=== PATIENT | female | born 1970 | race Caucasian/White ===

== ENCOUNTER → 2016-09-14 | Outpatient (CLI) | payer OTHER ==
[~2016-09-14] MED LIST: FIBER SUPPLEMENT PO; LINA1CAP PO; MEDR150I INJ; MOME100A INH; PARO1TAB27 PO; SENNTAB23 PO
[2016-09-14 18:32] LABS: LYME DISEASE AB IGG NEG (NEG); LYME DISEASE AB IGM NEG (NEG)
[2016-09-16 15:37] LABS: COLLECTION SAMPLE Venous; LEAD BLOOD <1 mcg/dL (<5)
== END | disposition home or self-care (01) ==
LOC: C.LAB 15:25
PROVIDERS: ATTEND Nurse Practitioner
DX: M79.643 Pain in unspecified hand (principal); M79.89 Other specified soft tissue disorders

== ENCOUNTER → 2016-10-18 | Outpatient (CLI) | payer OTHER ==
--- NOTE | 2016-10-18 17:43 | DIAGNOSTIC IMAGING REPORT ---
THORACIC SPINE 3 VIEWS HISTORY: M54.5 COMPARISON: None. FINDINGS: There is no fracture. No subluxation. Minimal disc space narrowing within the thoracic spine. Minimal levoscoliosis of the lower thoracic spine. Paraspinal soft tissues are unremarkable. IMPRESSION: No fracture or subluxation within the thoracic spine. Minimal degenerative disease and levoscoliosis. Electronically signed by: Devin Mcginnis M.D. 10/18/2016 5:42 PM Dictated Date/Time: 10/18/2016 5:40 PM
--- NOTE | 2016-10-18 17:44 | DIAGNOSTIC IMAGING REPORT ---
LUMBAR SPINE 5 VIEWS HISTORY: Low back pain. COMPARISON: None. FINDINGS: There is no fracture. No subluxation. The sacrum appears intact. Disc spaces are preserved. Tiny endplate osteophytes within the lumbar spine. IMPRESSION: No fracture or subluxation within the lumbar spine. Electronically signed by: Devin Mcginnis M.D. 10/18/2016 5:43 PM Dictated Date/Time: 10/18/2016 5:42 PM
== END | disposition home or self-care (01) ==
LOC: C.RAD 16:58
PROVIDERS: ATTEND Nurse Practitioner
DX: M54.5 Low back pain (principal)

== ENCOUNTER → 2016-11-24 | Outpatient (CLI) | payer OTHER ==
[~2016-11-24] MED LIST changes: +DULO60CA44 PO; +GABA-113 PO; +LISI-461 PO; +LORA-741 PO; +NAPR1TAB48 PO; +PRLSR20 PO
== END | disposition home or self-care (01) ==
LOC: C.PAPS 15:22
PROVIDERS: ATTEND Physician Assistant
DX: Z12.4 Encounter for screening for malignant neoplasm of cervix (principal)

== ENCOUNTER → 2016-12-13 | Outpatient (CLI) | payer OTHER ==
--- NOTE | 2016-12-13 16:45 | DIAGNOSTIC IMAGING REPORT ---
RIGHT KNEE 2 VIEWS CLINICAL HISTORY: Right knee pain. FINDINGS: AP and lateral views of the right knee are compared to study dated 08/14/2007. The skeletal structures are well mineralized. No fracture is seen. The joint spaces of the knee appear preserved. There is no joint effusion. Mild prepatellar soft tissue swelling is suggested. IMPRESSION: Mild prepatellar soft tissue swelling with no acute bony abnormality identified. Electronically signed by: Mckay Villeda M.D. 12/13/2016 4:42 PM Dictated Date/Time: 12/13/2016 4:41 PM
--- NOTE | 2016-12-13 16:47 | DIAGNOSTIC IMAGING REPORT ---
LEFT KNEE 2 VIEWS CLINICAL HISTORY: Left knee pain. FINDINGS: AP and lateral views of the left knee are compared to study dated 08/14/2007. The skeletal structures are well mineralized. No fracture is seen. The joint spaces of the left knee appear preserved. There is no joint effusion. Mild prepatellar soft tissue swelling is suggested. IMPRESSION: Mild prepatellar soft tissue swelling with no acute bony abnormality identified. Electronically signed by: Mckay Villeda M.D. 12/13/2016 4:44 PM Dictated Date/Time: 12/13/2016 4:44 PM
== END | disposition home or self-care (01) ==
LOC: C.RAD 16:21
PROVIDERS: ATTEND Nurse Practitioner
DX: M25.569 Pain in unspecified knee (principal)

== ENCOUNTER → 2016-12-19 | Outpatient (CLI) | payer OTHER ==
[2016-12-19 18:50] LABS: ALT/SGPT 19 U/L (12-78); AST/SGOT 9 U/L (15-37); BLOOD UREA NITROGEN 23 mg/dl (7-18); BUN/CREATININE RATIO 27.2 (10-20); CALCIUM 8.8 mg/dl (8.5-10.1); CARBON DIOXIDE 24 mmol/L (21-32); CHLORIDE 112 mmol/L (98-107); CREATININE 0.84 mg/dl (0.60-1.20); GLUCOSE 89 mg/dl (70-99); POTASSIUM 4.1 mmol/L (3.5-5.1); SODIUM 143 mmol/L (136-145)
[2016-12-19 18:52] LABS: ALB/GLOB RATIO 1.4 (0.9-2); ALKALINE PHOSPHATASE 38 U/L (45-117); CHOLESTEROL 273 mg/dl (0-200); HDL CHOLESTEROL 55 mg/dl; LDL CHOLESTEROL CALCULATED 189 mg/dl; TRIGLYCERIDES 147 mg/dl (0-150); VERY LOW DENSITY LIPOPROT CALC 29 mg/dl
== END | disposition home or self-care (01) ==
LOC: C.LABBFT 15:36
PROVIDERS: ATTEND Nurse Practitioner
DX: E78.5 Hyperlipidemia, unspecified (principal)

== ENCOUNTER → 2017-01-20 | Outpatient (CLI) | payer OTHER ==
--- NOTE | 2017-01-24 14:58 | MAMMOGRAPHY REPORT ---
BILATERAL FIRST EVER DIGITAL SCREENING MAMMOGRAM TOMOSYNTHESIS WITH CAD: 01/20/2017 CLINICAL HISTORY: Routine screening. Baseline exam. TECHNIQUE: Breast tomosynthesis in addition to standard 2D mammography was performed. Current study was also evaluated with a Computer Aided Detection (CAD) system. COMPARISON: No prior exams were available for comparison. BREAST COMPOSITION: There are scattered areas of fibroglandular density in both breasts. FINDINGS: No suspicious masses, calcifications, or areas of architectural distortion are noted in e ither breast. Bilateral scattered benign-appearing calcifications are noted. IMPRESSION: ACR BI-RADS CATEGORY 2: BENIGN There is no mammographic evidence of malignancy. A 1 year screening mammogram is recommended. The p atient will receive written notification of the results. Approximately 10% of breast cancers are not detected with mammography. A negative mammographic repor t should not delay biopsy if a clinically suggestive mass is present. Deidre Titus M.D. ah/:01/20/2017 16:29:05 Salvage Supervisor: Hector MART(Etienne)(Johny), [facility] letter sent: Normal 1/2 BI-RADS Code: ACR BI-RADS Category 2: Benign
== END | disposition home or self-care (01) ==
LOC: C.MAMM 15:51
PROVIDERS: ATTEND Internal Medicine
DX: Z12.31 Encounter for screening mammogram for malignant neoplasm of breast (principal)

== ENCOUNTER → 2017-05-15 | Outpatient (CLI) | payer OTHER ==
[~2017-05-15] MED LIST changes: -DULO60CA44 PO; -GABA-113 PO; -LISI-461 PO; -LORA-741 PO; -NAPR1TAB48 PO; -PRLSR20 PO
== END | disposition home or self-care (01) ==
LOC: C.LABBFT 14:37
PROVIDERS: ATTEND Nurse Practitioner
DX: R20.2 Paresthesia of skin (principal); R52 Pain, unspecified

== ENCOUNTER → 2017-06-21 | Outpatient (CLI) | payer OTHER ==
--- NOTE | 2017-06-21 17:32 | DIAGNOSTIC IMAGING REPORT ---
LUMBAR SPINE W/O CONTRAST CLINICAL HISTORY: 47 years-old Female with LOW BACK PAIN, NUMBNESS IN FEET. Acute on chronic low back pain with bilateral leg pain. COMPARISON: Lumbar spine radiographs 10/18/2016, CT 11/20/2015, bone scan 09/17/2007. TECHNIQUE: Multiplanar, multi sequence MRI of the lumbar spine was performed without intravenous contrast. FINDINGS: Vertebral body heights are well-maintained without compression deformity. Alignment is satisfactory. There is no focal bone marrow or soft tissue edema. No fracture or marrow replacing process. Signal within the cord is normal. Conus medullaris terminates at L1. Probable perineural root sleeve cyst is seen on the left at S2-S3, 9 mm as seen on image 10 of series 4. No acute intra-abdominal, intrapelvic or paraspinal abnormality identified. The large [id number] migratory worker images demonstrate an anteflexed uterus without gross abdominal or pelvic abnormality. T12-L1: No central canal or neural foraminal stenosis. L1-L2: Mild intervertebral disc space narrowing with small annular fissure and broad-based left paracentral/foraminal disc protrusion flattening the ventral thecal sac causing mild left lateral recess narrowing abutting the adjacent L3 nerve root. No significant central canal or foraminal narrowing. L2-L3: Small circumferential annular disc bulge flattens the ventral thecal sac. Mild ligament flavum thickening is also present. There is mild inferior left foraminal narrowing. Central canal and right foramen are patent. L3-L4: No central canal or neural foraminal stenosis. Mild ligamentum flavum redundancy and mild facet arthrosis. L4-L5: Broad-based posterior disc bulge with small annular fissure seen on image 7 of series 4 and associated small disc extrusion extending 3 mm inferiorly within the left paracentral/foraminal distribution flattening the ventral thecal sac causing mild left lateral recess and mild left foraminal narrowing. There is also mild right foraminal stenosis at this level. No significant central canal narrowing. Mild facet arthrosis. L5-S1: Broad-based posterior disc bulge with mild facet arthrosis and ligamentum flavum redundancy. No central canal narrowing. There is mild bilateral foraminal stenosis. IMPRESSION: 1. Broad-based posterior disc bulge with small annular fissure and small left paracentral/left foraminal disc extrusion at L4-L5 causes mild left lateral recess and mild bilateral foraminal narrowing. 2. At L1-L2, discogenic degenerative changes and small annular fissure are present with mild left lateral recess stenosis as above. 3. Broad-based posterior disc bulge and mild facet arthrosis at L5-S1 causes mild bilateral foraminal narrowing. The above report was generated using voice recognition software. It may contain grammatical, syntax or spelling errors. Electronically signed by: Speedy Tena M.D. 06/21/2017 5:30 PM Dictated Date/Time: 06/21/2017 5:20 PM
== END | disposition home or self-care (01) ==
LOC: C.MRI 15:33
PROVIDERS: ATTEND Nurse Practitioner
DX: M51.06 Intervertebral disc disorders with myelopathy, lumbar region (principal); R20.2 Paresthesia of skin; M48.061 Spinal stenosis, lumbar region without neurogenic claudication

== ENCOUNTER → 2017-11-22 | Outpatient (CLI) | payer OTHER ==
[~2017-11-22] MED LIST changes: +CLX20 PO; +DULO60CA44 PO; +GABA-113 PO; +LISI-461 PO; +LORA-741 PO; +NAPR1TAB48 PO; -PARO1TAB27 PO; +PRAZ1CAP PO; +PRLSR20 PO; +ZOLP5TAB PO
[2017-11-22 17:13] LABS: BASO % 0.2 %; BASO ABS # 0.01 K/uL (0-0.2); EOS % 1.2 %; EOS ABS # 0.07 K/uL (0-0.5); HEMATOCRIT 39.2 % (37-47); HEMOGLOBIN 13.2 g/dL (12.0-16.0); LYMPH % 28.3 %; LYMPH ABS # 1.72 K/uL (1.2-3.4); MEAN CELL VOLUME 86.3 fL (80-100); MEAN CORPUSCULAR HEMOGLOBIN 29.1 pg (25-34); MEAN CORPUSCULAR HGB CONC 33.7 g/dl (32-36); MEAN PLATELET VOLUME 10.5 fL (7.4-10.4); MONO % 6.9 %; MONO ABS # 0.42 K/uL (0.11-0.59); NEUT % 63.4 %; NEUT ABS # 3.86 K/uL (1.4-6.5); PLATELET COUNT 236 K/uL (130-400); RED CELL DISTRIBUTION WIDTH CV 14.6 % (11.5-14.5); RED CELL DISTRIBUTION WIDTH SD 46.1 fL (36.4-46.3); WHITE BLOOD COUNT 6.08 K/uL (4.8-10.8)
[2017-11-22 17:44] LABS: ALBUMIN 4.5 gm/dl (3.4-5.0); ALT/SGPT 18 U/L (12-78); AST/SGOT 17 U/L (15-37); BLOOD UREA NITROGEN 22 mg/dl (7-18); CALCIUM 9.6 mg/dl (8.5-10.1); CARBON DIOXIDE 22 mmol/L (21-32); CREATININE 0.91 mg/dl (0.60-1.20); GLUCOSE 92 mg/dl (70-99); SODIUM 140 mmol/L (136-145)
[2017-11-22 17:47] LABS: ALKALINE PHOSPHATASE 42 U/L (45-117); TOTAL PROTEIN 7.6 gm/dl (6.4-8.2)
== END | disposition home or self-care (01) ==
LOC: C.LABBFT 12:02
PROVIDERS: ATTEND Nurse Practitioner
DX: I10 Essential (primary) hypertension (principal); R39.9 Unspecified symptoms and signs involving the genitourinary system

== ENCOUNTER → 2017-12-16 | Outpatient (CLI) | payer OTHER ==
[~2017-12-16] MED LIST changes: +CYCL10TA6 PO; +DPPRI400 IN; -FIBER SUPPLEMENT PO; -MEDR150I INJ; +METH4PAK PO
--- NOTE | 2017-12-16 16:05 | DIAGNOSTIC IMAGING REPORT ---
KUB CLINICAL HISTORY: Bilateral flank pain. FINDINGS: 2 AP supine abdominal radiographs are compared to study dated 03/01/2006 and correlated with abdominal CT dated 11/20/2015. There is a nonobstructed abdominal bowel gas pattern noting moderate colonic fecal retention. There is a punctate nonobstructing left renal calculus. No calcifications are seen projecting over the right kidney or along the course of the ureters. No evidence of intraperitoneal free air is seen on these supine images. The bony structures appear intact. IMPRESSION: 1. There is a punctate nonobstructing left renal calculus. 2. Moderate constipation. Electronically signed by: Mckay Villeda M.D. 12/16/2017 4:04 PM Dictated Date/Time: 12/16/2017 4:02 PM
== END | disposition home or self-care (01) ==
LOC: C.RAD 15:07
PROVIDERS: ATTEND Internal Medicine
DX: R10.9 Unspecified abdominal pain (principal)

== ENCOUNTER → 2018-01-03 | Outpatient (CLI) | payer OTHER ==
[~2018-01-03] MED LIST changes: -CYCL10TA6 PO; +GADAVIST IV PRN; -METH4PAK PO
--- NOTE | 2018-01-03 16:00 | DIAGNOSTIC IMAGING REPORT ---
MRI OF THE BRAIN WITHOUT AND WITH IV CONTRAST CLINICAL HISTORY: R29.898 Weakness of both lower [id number] VISUAL DISTURBANCES. MEMORY ISSUES. HISTORY OF FIBROMYALGIA. COMPARISON STUDY: No previous studies for comparison. TECHNIQUE: MRI of the brain was performed from the vertex to the skull base utilizing various T1 and T2 weighted sequences. Following the IV administration of 6 mL of Gadavist contrast, additional enhanced images were obtained. FINDINGS: Sagittal T1, axial diffusion, proton density and T2 weighted axial, coronal FLAIR, and pre and post axial T1-weighted images were acquired. These were supplemented with post gadolinium coronal T1 weighted images. No intra or extra-axial mass lesions are visualized. Axial diffusion-weighted images reveal no evidence of acute or subacute infarction. There is no evidence of ventricular dilatation. Proton density T2-weighted and FLAIR images reveal scattered foci of increased T2 signal within the white matter, likely on a small vessel basis. There are no abnormal flow voids. There is no pathologic intraparenchymal enhancement. There is a nonspecific 11 mm T2 bright diploic lesion within the right anterior parietal bone. This demonstrates postcontrast enhancement. In the absence of a primary malignancy, this lesion is of doubtful acute clinical significance. A follow-up MRI study in 6 months might be considered to reevaluate the white matter lesions, as well as to reevaluate the right diploic space lesion. IMPRESSION: 1. Multiple scattered nonspecific foci of increased T2 signal within the white matter, the largest of which measures 5 mm. While demyelinating disease cannot be excluded, the lesions do not have the typical orientation of multiple sclerosis plaques, and may simply be secondary to small vessel perivascular change. 2. No evidence of acute or subacute infarction 3. Nonspecific 11 mm T2 bright diploic lesion within the right anterior parietal bone Electronically signed by: Basil Springer M.D. 01/03/2018 3:58 PM Dictated Date/Time: 01/03/2018 3:51 PM
== END | disposition home or self-care (01) ==
LOC: C.MRI 14:53
PROVIDERS: ATTEND Nurse Practitioner
DX: G93.9 Disorder of brain, unspecified (principal); M84.88 Other disorders of continuity of bone, other site; R29.898 Other symptoms and signs involving the musculoskeletal system

== ENCOUNTER 2022-06-01 03:21 | Inpatient (IN) ==
[2022-06-01] MEDS ORDERED: KETOROLAC TROMETHAMINE 15 MG/ML VIAL IV STA (03:31)
[2022-06-01] MEDS ORDERED: ONDANSETRON INJ 2 MG/ML 2 ML VIAL IV STA ×2 (03:31→05:49)
[2022-06-01] MEDS ORDERED: SODIUM CHLORIDE 0.9% 1000ML 1,000 ML IV STA (03:31)
[2022-06-01 04:07] LABS: Hematocrit (blood only) 36.4 % (34.1-44.9); Hemoglobin 12.7 g/dl (12.0-16.0); Mean Corpuscular Hemoglobin 29.1 pg (25.0-34.0); Mean Corpuscular Hgb Conc 34.9 g/dL (32.0-36.0); Mean Corpuscular Volume 83.5 fL (80.0-100.0); Mean Platelet Volume 10.3 fL (9.4-12.3); Platelet Count 162 K/uL (130-400); RDW Coefficient of Variation 13.1 % (11.5-14.5); RDW Standard Deviation 39.7 fL (36.4-46.3); Red Blood Count 4.36 M/uL (3.93-5.22); White Blood Count 10.99 K/ul (4.8-10.8)
[2022-06-01 04:11] LABS: Appearance Urine Clear (Clear); Bacteria Urine Automated 4+ (Negative); Bilirubin Urine Negative (Negative); Blood Urine 2+ (Negative); Cast Urine Automated 0 /lpf (0-5); Color Urine Yellow; Glucose Urine UA Negative (Negative); Ketones Urine Negative (Negative); Leukocyte Esterase Urine Trace (Negative); Nitrite Urine Negative (Negative); Protein Urine Negative (Negative); RBC Urine Automated 0-4 /hpf (0-4); Specific Gravity Urine 1.008 (1.000-1.030); Urobilinogen Urine Negative (Negative)
[2022-06-01] MEDS ORDERED: ACETAMINOPHEN 1,000 MG/100 ML VIAL IV STA ×3 (04:22→13:48)
[2022-06-01] MEDS ORDERED: cefTRIAXone SODIUM 2,000 MG/70 ML BAG IV STA (04:26)
[2022-06-01 04:38] LABS: Alanine Aminotransferase 41 U/L (7-52); Albumin Globulin Ratio 2.1 (0.9-2); Alkaline Phosphatase 53 U/L (34-104); Anion Gap 11 (3-11); Aspartate Aminotransferase 27 U/L (13-39); BUN Creatinine Ratio 21.8 (10-20); Bilirubin,Total 0.7 mg/dl (0.2-1.0); Blood Urea Nitrogen 19 mg/dl (6-23); Calcium 8.9 mg/dl (8.5-10.1); Carbon Dioxide 18 mmol/L (21-32); Chloride 106 mmol/L (98-107); Est GFR (African American) 87.5 ml/min; Est GFR (Non-African American) 75.5 ml/min; Globulin 1.9 gm/dl (2.5-4.0); Glucose 127 mg/dl (70-99(Fasting)); Lipase 27 U/L (11-82); Potassium 3.4 mmol/L (3.5-5.1); Sodium 135 mmol/L (136-145); Total Protein 5.9 gm/dl (6.0-8.3)
[2022-06-01 04:48] LABS: Basophils # (auto) 0.02 K/uL (0-0.2); Basophils % (auto) 0.2 %; Eosinophils # (auto) 0.01 K/uL (0-0.50); Eosinophils % (auto) 0.1 %; Immature Granulocytes # (auto) 0.04 K/uL (0.00-0.02); Immature Granulocytes % (auto) 0.4 %; Lymphocytes # (auto) 0.65 K/uL (1.2-3.4); Lymphocytes % (auto) 5.9 %; Monocytes # (auto) 0.18 K/uL (0.24-0.82); Monocytes % (auto) 1.6 %; Neutrophils # (auto) 10.09 K/uL (1.4-6.5); Neutrophils % (auto) 91.8 %; Toxic Vacuolation 1+
[2022-06-01] MEDS ORDERED: MoRPHine SULFATE 2 MG/ML CARP IV STA (04:50)
--- NOTE | 2022-06-01 05:13 | Urology Consultation ---
Date of Consultation June 01, 2022 Assessment & Plan (1) Nephrolithiasis: The patient is being admitted on the hospitalist service. We recommend proceeding as follows: Provide analgesics Provide antiemetics Provide hydration for IV fluids Patient has been given antibiotics in the form of Rocephin. This should continue until results of urine culture are back, at which time antibiotics can be further tailored Recommend initiating Flomax for expulsive therapy The patient currently has normal blood pressure, is not tachycardic, and is afebrile. Renal function is normal. White blood cell count only has a slight elevation at 10.9 therefore an emergent urologic procedure is not required at this time. Recommend keeping the patient n.p.o., she will be reassessed later this morning and consideration can be given at that time to performing cystoscopic intervention if felt indicated History of Present Illness Reason for Consultation: Nephrolithiasis History of Present Illness This is a 52-year-old female who presented to the emergency department secondary to left-sided flank pain. The patient says that she was in her usual state of health yesterday, feeling fine without any pain, until approximate 9:00 PM she developed left flank pain. She notes that the pain radiates somewhat to the front of her abdomen. She denies any fevers but has had occasional chills. She also reports some intermittent dysuria. She denies urinary frequency or hematuria however. Patient does report a history of nephrolithiasis in the past. She notes that she has had to have cystoscopy with stent placement and lithotripsy for previous kidney stones in the past. In the emergency department the patient had labs and imaging which I independently reviewed. CBC revealed white blood cell count was 10.9. Hemoglobin, hematocrit, platelet count were normal. Chemistry profile showed sodium and potassium are 135 and 3.4 respectively. BUN and creatinine were both noted to be normal. Urinalysis was negative for nitrites but did show trace leukocyte esterase. There were 5-10 white blood cells per high-power field and 4+ bacteria noted on the study. A test was negative. CT scan of the abdomen pelvis showed the patient had a 4 x 3 mm left-sided kidney stone resulting in hydronephrosis. At the time of my interview the patient was resting comfortably in bed and she was in no distress. Allergies Allergy/AdvReac Type Severity Reaction Status Date / Time meloxicam Allergy Intermediate GI SYMPTOMS Verified 01/07/22 14:07 Home Medications Medication Instructions Recorded Confirmed Type prazosin 1 mg capsule 1 mg PO DAILY 03/28/19 06/01/22 History lorazepam 0.5 mg tablet 0.5 mg PO Q6 PRN Anxiety #30 tabs 10/19/20 06/01/22 Rx Ventolin HFA 90 mcg/actuation See Rx Instructions .Route 04/21/21 06/01/22 Rx aerosol inhaler (albuterol sulfate) .COMPLEX #18 Inhalers gabapentin 600 mg tablet 600 mg PO TID #270 tabs 04/21/21 06/01/22 Rx budesonide-formoterol HFA 80 2 puff inhalation BID 06/26/21 06/01/22 History mcg-4.5 mcg/actuation aerosol inhaler (Symbicort) sumatriptan succinate 100 mg tablet 100 mg PO Q2H PRN migraine 09/29/21 01/07/22 Rx headache #27 tabs duloxetine 60 mg capsule,delayed 60 mg PO DAILY #90 caps 11/09/21 06/01/22 Rx release (Cymbalta) sertraline 100 mg tablet 100 mg PO DAILY 01/07/22 06/01/22 History trazodone 50 mg tablet 50 mg PO HS 01/07/22 06/01/22 History divalproex 250 mg tablet,delayed 250 mg PO HS 90 days #90 tabs 01/17/22 06/01/22 Rx release galcanezumab-gnlm 120 mg/mL See Rx Instructions .Route 04/06/22 06/01/22 Rx subcutaneous pen injector .COMPLEX #1 mL (Emgality Pen) atorvastatin 20 mg tablet 20 mg PO DAILY #90 tabs 05/17/22 06/01/22 Rx omeprazole 20 mg capsule,delayed 20 mg PO DAILY #90 caps 05/17/22 06/01/22 Rx release Patient History Medical History Abnormal brain MRI Kidney stones Surgical History History of lithotripsy renal History of tubal ligation Hx of abdominal surgery Family History Mother COPD (chronic obstructive pulmonary disease) Diabetes Father Aneurysm of abdominal aorta Unknown Cardiac disorder Brother Kidney stones Other Family history non-contributory Heart disease Hypertension Denies family history of Ovarian cancer Prostate cancer Breast cancer Lung cancer Colorectal cancer Social History Smoking Status: Unknown if ever smoked Second Hand Exposure: Yes; Hx Alcohol Use: No Hx Substance Use: No Preferred Language: Cymraes marital status: Single Current Living Situation: Family Current Living Situation Comment: Lives w/ 30 year old son current occupational status: disabled Feels Safe at Home: Yes Childhood Exposure to Second-Hand Smoke: Yes caffeine: Yes Dental Care, Regularly: Yes Physical Activity Frequency: Does not Exercise Physical Activity Frequency Comment: Unable to exercise due to pain Seatbelt Use: always Sunscreen Use: No (Is sensitive to sun, avoids being in the sunlight ) Assistive Devices: Glasses Review of Systems Constitutional: + chills; no fever Eyes: no eye pain Ear, Nose, Mouth, Throat: no ear pain Respiratory: no cough and no dyspnea Cardiovascular: no chest pain Gastrointestinal: + abdominal pain (Radiating from left flank) Genitourinary: + dysuria; no hematuria Musculoskeletal: + back pain (Left flank) Integumentary: no rash Neurologic: no generalized weakness Physical Exam Constitutional: WD/WN, vitals as above Eyes: no conjunctival abnormality ENMT: Ears: no hearing impairment and no external ear abnormality Mouth: no oropharynx abnormality Neck: trachea midline Respiratory: normal respiratory effort; no respiratory distress and no labored breathing Cardiovascular: Rate/Rhythm: regular rate and regular rhythm Gastrointestinal (Abdomen): Abdomen is soft, nonrigid, nondistended. The patient did have some minor discomfort in the left hypogastric area with palpation Musculoskeletal: No calf tenderness Skin: no rashes Neurologic: moves all extremities Psychiatric: A+Ox3, euthymic affect Genitourinary: + CVA tenderness (Left-sided, noted with percussion) Results & Data ([facility]) Vital Signs (Past 12 Hours) Vital Signs Temp Pulse Resp BP Pulse Ox O2 Del Method 06/01/22 03:50 70 22 98 Room Air 06/01/22 03:28 37.2 C 79 22 106/70 98 PG Care Time/CCT Total # of Minutes Spent Total Time Spent with Patient: Total time spent is greater than 50% in coordination of care (as documented) at patient's floor/unit and/or counseling patient: Coding Level of Care Code 73162 Inpt Consult Level 5 Diagnoses Nephrolithiasis N20.0
--- NOTE | 2022-06-01 05:36 | History & Physical Report ---
Date of Service June 01, 2022 Assessment & Plan (1) Nephrolithiasis: Plan: 52yo female with history of prior renal stones presenting with acute onset left flank pain with nausea, chills and dysuria. Found to have left renal stone on CT, UA suggestive of infection. Patient is afebrile, HD stable. In pain but otherwise non-toxic in appearance. -Admit to medical -Keep NPO -Strain urine -Zofran PRN nausea -Morphine PRN pain -Colace PRN -Flomax 0.4mg po daily -LR at 125mL/hr x 2 liters -Urology consultation appreciated -Treatment with Ceftriaxone 1gm IV daily -Follow cultures (2) UTI (urinary tract infection): Plan: Patient afebrile, HD stable, non-toxic in appearance -Follow cultures -Ceftriaxone 1gm IV daily -Tylenol PRN pain or fever (3) Asthma: Plan: Chronic. Patient is recovering from bronchitis - was on recent course of Prednisone and antibiotic. States she was using her inhalers more during her acute illness but presently denies cough or SOB. -Continue Albuterol PRN -Continue Symbicort (4) Depression: Plan: With anxiety -Continue Ativan -Continue Sertraline -Continue Prazosin (5) Fibromyalgia: Plan: Chronic -Continue Depakote -Continue Cymbalta -Continue Neurontin (6) Gastro-esophageal reflux disease without esophagitis: Plan: Chronic -Pepcid 40mg po daily (7) Hyperlipidemia: Plan: Chronic -Continue Atorvastatin 20mg po daily History of Present Illness Chief Complaint: left flank pain Primary Care Provider: Jacey Rivers PA-C Camilla Narayanan is a 52yo female with history of asthma, HTN, GERD, FM and asthma presenting with acute onset left flank pain. Patient is recovering from bronchitis - recently completed a 5 day course of antibiotic and steroid. She was overall feeling well until this evening at 20:45 when she developed acute left flank pain as well as nausea. Pain is similar to prior episodes of renal stones. Patient has had renal stones in the past - she has been able to pass some but has also had lithotripsy and stent placement. No additional complaints at this time. In the ER she is afebrile, HD stable, in mild distress secondary to pain Workup with visible stone in left ureter - formal CT read pending UA is suggestive of infection ER Course: Tylenol, Ceftriaxione, Toradol, Morphine, Zofran, NSS Allergies Allergy/AdvReac Type Severity Reaction Status Date / Time meloxicam Allergy Intermediate GI SYMPTOMS Verified 01/07/22 14:07 Home Medications Medication Instructions Recorded Confirmed Type prazosin 1 mg capsule 1 mg PO DAILY 03/28/19 06/01/22 History lorazepam 0.5 mg tablet 0.5 mg PO Q6 PRN Anxiety #30 tabs 10/19/20 06/01/22 Rx Ventolin HFA 90 mcg/actuation See Rx Instructions .Route 04/21/21 06/01/22 Rx aerosol inhaler (albuterol sulfate) .COMPLEX #18 Inhalers gabapentin 600 mg tablet 600 mg PO TID #270 tabs 04/21/21 06/01/22 Rx budesonide-formoterol HFA 80 2 puff inhalation BID 06/26/21 06/01/22 History mcg-4.5 mcg/actuation aerosol inhaler (Symbicort) sumatriptan succinate 100 mg tablet 100 mg PO Q2H PRN migraine 09/29/21 01/07/22 Rx headache #27 tabs duloxetine 60 mg capsule,delayed 60 mg PO DAILY #90 caps 11/09/21 06/01/22 Rx release (Cymbalta) sertraline 100 mg tablet 100 mg PO DAILY 01/07/22 06/01/22 History trazodone 50 mg tablet 50 mg PO HS 01/07/22 06/01/22 History divalproex 250 mg tablet,delayed 250 mg PO HS 90 days #90 tabs 01/17/22 06/01/22 Rx release galcanezumab-gnlm 120 mg/mL See Rx Instructions .Route 04/06/22 06/01/22 Rx subcutaneous pen injector .COMPLEX #1 mL (Emgality Pen) atorvastatin 20 mg tablet 20 mg PO DAILY #90 tabs 05/17/22 06/01/22 Rx omeprazole 20 mg capsule,delayed 20 mg PO DAILY #90 caps 05/17/22 06/01/22 Rx release Past Med/Surg History Medical History Abnormal brain MRI Asthma Depression Essential hypertension Fibromyalgia Gastro-esophageal reflux disease without esophagitis Hyperlipidemia Kidney stones Migraine Surgical History History of lithotripsy renal History of tubal ligation Hx of abdominal surgery Family History Mother COPD (chronic obstructive pulmonary disease) Diabetes Father Aneurysm of abdominal aorta Unknown Cardiac disorder Brother Kidney stones Other Family history non-contributory Heart disease Hypertension Denies family history of Ovarian cancer Prostate cancer Breast cancer Lung cancer Colorectal cancer Social History Smoking Status: Unknown if ever smoked Second Hand Exposure: Yes; Hx Alcohol Use: No Hx Substance Use: No Preferred Language: Romansh marital status: Single Current Living Situation: Family Current Living Situation Comment: Lives w/ 30 year old son current occupational status: disabled Feels Safe at Home: Yes Childhood Exposure to Second-Hand Smoke: Yes caffeine: Yes Dental Care, Regularly: Yes Physical Activity Frequency: Does not Exercise Physical Activity Frequency Comment: Unable to exercise due to pain Seatbelt Use: always Sunscreen Use: No (Is sensitive to sun, avoids being in the sunlight ) Assistive Devices: Glasses Review of Systems Review of Systems: All systems reviewed & are unremarkable except as noted in HPI & below Physical Exam Physical Exam: General: patient resting comfortably, NAD, non-toxic in appearance, AA&O x 4 Skin: warm, dry, intact, no rashes or lesions HEENT: NC/AT, PERRL, EOMI, anicteric sclera, conjunctiva without injection, external ear normal to inspection and nontender, nares patent, moist mucus membranes, dentition intact, no oropharyngeal lesions, neck supple, trachea midline, no LAD, no thyromegaly, no JVD Heart: +S1/S2, regular, no m/r/g Lungs: equal air entry bilaterally, no rales/rhonchi/wheezes Abd: +BS, soft, ND, tenderness in the left flank and LLQ with voluntary guarding, no masses/organomegaly/ascites Ext: warm, 2+ pulses in UE/LE bilaterally, no clubbing/cyanosis or edema Neuro: nonfocal, patient AA&O x 4, speech intact, no facial droop, moving all extremities on command with equal strength 5/5 Results & Data Results & Data ([place]) Vital Signs (Past 12 Hours) Vital Signs Temp Pulse Pulse Resp BP BP Pulse Ox 06/01/22 05:00 89 22 124/57 L 98 06/01/22 03:50 70 22 98 06/01/22 03:28 37.2 C 79 22 106/70 98 O2 Del Method 06/01/22 05:00 Room Air 06/01/22 03:50 Room Air 06/01/22 03:28 Laboratory Results Laboratory Results WBC 10.99 K/ul (4.8-10.8) H 06/01/22 03:40 RBC 4.36 M/uL (3.93-5.22) 06/01/22 03:40 Hgb 12.7 g/dl (12.0-16.0) 06/01/22 03:40 Hct 36.4 % (34.1-44.9) 06/01/22 03:40 MCV 83.5 fL (80.0-100.0) 06/01/22 03:40 MCH 29.1 pg (25.0-34.0) 06/01/22 03:40 MCHC 34.9 g/dL (32.0-36.0) 06/01/22 03:40 RDW Std Deviation 39.7 fL (36.4-46.3) 06/01/22 03:40 RDW Coeff of Stephan 13.1 % (11.5-14.5) 06/01/22 03:40 Plt Count 162 K/uL (130-400) 06/01/22 03:40 MPV 10.3 fL (9.4-12.3) 06/01/22 03:40 Immature Gran % (Auto) 0.4 % 06/01/22 03:40 Neut % (Auto) 91.8 % 06/01/22 03:40 Lymph % (Auto) 5.9 % 06/01/22 03:40 [place] % (Auto) 1.6 % 06/01/22 03:40 Eos % (Auto) 0.1 % 06/01/22 03:40 Baso % (Auto) 0.2 % 06/01/22 03:40 Neut # (Auto) 10.09 K/uL (1.4-6.5) H 06/01/22 03:40 Lymph # (Auto) 0.65 K/uL (1.2-3.4) L 06/01/22 03:40 [place] # (Auto) 0.18 K/uL (0.24-0.82) L 06/01/22 03:40 Eos # (Auto) 0.01 K/uL (0-0.50) 06/01/22 03:40 Baso # (Auto) 0.02 K/uL (0-0.2) 06/01/22 03:40 Immature Gran # (Auto) 0.04 K/uL (0.00-0.02) H 06/01/22 03:40 Toxic Vacuolation 1+ 06/01/22 03:40 Sodium 135 mmol/L (136-145) L 06/01/22 03:40 Potassium 3.4 mmol/L (3.5-5.1) L 06/01/22 03:40 Chloride 106 mmol/L (98-107) 06/01/22 03:40 Carbon Dioxide 18 mmol/L (21-32) L 06/01/22 03:40 Anion Gap 11 (3-11) 06/01/22 03:40 BUN 19 mg/dl (6-23) 06/01/22 03:40 Creatinine 0.87 mg/dl (0.6-1.2) 06/01/22 03:40 Est Cr Clr Drug Dosing Not Reportable 06/01/22 03:40 Est GFR ( Amer) 87.5 ml/min 06/01/22 03:40 Est GFR (Non-Af Amer) 75.5 ml/min 06/01/22 03:40 BUN/Creatinine Ratio 21.8 (10-20) H 06/01/22 03:40 Glucose 127 mg/dl (70-99(Fasting)) H 06/01/22 03:40 Calcium 8.9 mg/dl (8.5-10.1) 06/01/22 03:40 Total Bilirubin 0.7 mg/dl (0.2-1.0) 06/01/22 03:40 AST 27 U/L (13-39) 06/01/22 03:40 ALT 41 U/L (7-52) 06/01/22 03:40 Alkaline Phosphatase 53 U/L (34-104) 06/01/22 03:40 Total Protein 5.9 gm/dl (6.0-8.3) L 06/01/22 03:40 Albumin 4.0 gm/dl (3.4-5.0) 06/01/22 03:40 Globulin 1.9 gm/dl (2.5-4.0) L 06/01/22 03:40 Albumin/Globulin Ratio 2.1 (0.9-2) H 06/01/22 03:40 Lipase 27 U/L (11-82) 06/01/22 03:40 Urine Color Yellow 06/01/22 03:40 Urine Appearance Clear (Clear) 06/01/22 03:40 Urine pH 7.0 (4.5-7.5) 06/01/22 03:40 Ur Specific [place] 1.008 (1.000-1.030) 06/01/22 03:40 Urine Protein Negative (Negative) 06/01/22 03:40 Urine Glucose (UA) Negative (Negative) 06/01/22 03:40 Urine Ketones Negative (Negative) 06/01/22 03:40 Urine Blood 2+ (Negative) H 06/01/22 03:40 Urine Nitrite Negative (Negative) 06/01/22 03:40 Urine Bilirubin Negative (Negative) 06/01/22 03:40 Urine Urobilinogen Negative (Negative) 06/01/22 03:40 Ur Leukocyte Esterase Trace (Negative) H 06/01/22 03:40 Urine WBC (Auto) 5-10 /hpf (0-5) H 06/01/22 03:40 Urine RBC (Auto) 0-4 /hpf (0-4) 06/01/22 03:40 U Hyaline Cast (Auto) 0 /lpf (0-5) 06/01/22 03:40 U Epithel Cells (Auto) 5-10 /lpf (0-5) H 06/01/22 03:40 Urine Bacteria (Auto) 4+ (Negative) H 06/01/22 03:40 POC Ur Test NEG (NEG) 06/01/22 03:40 SARS-CoV-2, RNA, NAAT NEGATIVE (NEGATIVE) 06/01/22 05:03 PG Care Time/CCT Total # of Minutes Spent Total Time Spent with Patient: Total time spent is greater than 50% in coordination of care (as documented) at patient's floor/unit and/or counseling patient: Coding Level of Care Code 04760 Initial Inpt Care Lvl 3 Diagnoses Nephrolithiasis N20.0 UTI (urinary tract infection) N39.0 Asthma J45.909 Depression F32.9 Fibromyalgia M79.7 Gastro-esophageal reflux disease without esophagitis K21.9 Hyperlipidemia E78.5
--- NOTE | 2022-06-01 06:03 | Emergency Department Note ---
History of Present Illness General Chief complaint: Flank Pain Time Seen by Provider: 06/01/22 03:31 History of Present Illness Maximum Pain Intensity: 2 This 52-year-old female patient with significant past medical history of kidney stones presents to the emergency department today for evaluation of left flank pain which began suddenly last night. Patient states she took some Tylenol and drink 3 beers to help with her pain without relief, so she contacted EMS and was brought to the emergency department for evaluation. No fever. She is feeling nauseous from the pain. She denies any dysuria, urinary frequency, urinary hesitancy, hematuria. No numbness or weakness. No chest pain or shortness of breath. No headache or dizziness. She rates her pain 8/10 and describes it as sharp and aching. Home Medications Medication Instructions Recorded Confirmed Type prazosin 1 mg capsule 1 mg PO DAILY 03/28/19 06/01/22 History lorazepam 0.5 mg tablet 0.5 mg PO Q6 PRN Anxiety #30 tabs 10/19/20 06/01/22 Rx Ventolin HFA 90 mcg/actuation See Rx Instructions .Route 04/21/21 06/01/22 Rx aerosol inhaler (albuterol sulfate) .COMPLEX #18 Inhalers gabapentin 600 mg tablet 600 mg PO TID #270 tabs 04/21/21 06/01/22 Rx budesonide-formoterol HFA 80 2 puff inhalation BID 06/26/21 06/01/22 History mcg-4.5 mcg/actuation aerosol inhaler (Symbicort) sumatriptan succinate 100 mg tablet 100 mg PO Q2H PRN migraine 09/29/21 01/07/22 Rx headache #27 tabs duloxetine 60 mg capsule,delayed 60 mg PO DAILY #90 caps 11/09/21 06/01/22 Rx release (Cymbalta) sertraline 100 mg tablet 100 mg PO DAILY 01/07/22 06/01/22 History trazodone 50 mg tablet 50 mg PO HS 01/07/22 06/01/22 History divalproex 250 mg tablet,delayed 250 mg PO HS 90 days #90 tabs 01/17/22 06/01/22 Rx release galcanezumab-gnlm 120 mg/mL See Rx Instructions .Route 04/06/22 06/01/22 Rx subcutaneous pen injector .COMPLEX #1 mL (Emgality Pen) atorvastatin 20 mg tablet 20 mg PO DAILY #90 tabs 05/17/22 06/01/22 Rx omeprazole 20 mg capsule,delayed 20 mg PO DAILY #90 caps 05/17/22 06/01/22 Rx release Allergies Allergy/AdvReac Type Severity Reaction Status Date / Time meloxicam Allergy Intermediate GI SYMPTOMS Verified 01/07/22 14:07 Past Med/Surg History Medical History Abnormal brain MRI Asthma Depression Essential hypertension Fibromyalgia Gastro-esophageal reflux disease without esophagitis Hyperlipidemia Kidney stones Migraine Surgical History History of lithotripsy renal History of tubal ligation Hx of abdominal surgery Family History Mother COPD (chronic obstructive pulmonary disease) Diabetes Father Aneurysm of abdominal aorta Unknown Cardiac disorder Brother Kidney stones Other Family history non-contributory Heart disease Hypertension Denies family history of Ovarian cancer Prostate cancer Breast cancer Lung cancer Colorectal cancer Social History Smoking Status: Unknown if ever smoked Second Hand Exposure: Yes; Hx Alcohol Use: No Hx Substance Use: No Preferred Language: Icelandic marital status: Single Current Living Situation: Family Current Living Situation Comment: Lives w/ 30 year old son current occupational status: disabled Feels Safe at Home: Yes Childhood Exposure to Second-Hand Smoke: Yes caffeine: Yes Dental Care, Regularly: Yes Physical Activity Frequency: Does not Exercise Physical Activity Frequency Comment: Unable to exercise due to pain Seatbelt Use: always Sunscreen Use: No (Is sensitive to sun, avoids being in the sunlight ) Assistive Devices: Glasses Review of Systems A total of 10 systems reviewed and were otherwise negative Physical Exam Vital Signs Vital Signs - 24 hr 06/01/22 03:28 06/01/22 03:50 06/01/22 05:00 Temperature 37.2 C Temperature Source Oral Pulse Rate 79 70 Pulse Rate [Apical] 89 Respiratory Rate 22 22 22 Respiratory Effort / Characteristics Non-Labored Spontaneous Respiratory Depth Normal Respiratory Pattern Regular Blood Pressure 106/70 Blood Pressure [Right Arm] 124/57 L Blood Pressure Mean 82 Blood Pressure Mean [Right Arm] 79 Pulse Oximetry 98 98 98 Oxygen Delivery Method Room Air Room Air Sepsis Recent Fever Within 48 Hours No Sepsis New/Unexplained Change in Mental Status No Sepsis Action Taken by Nursing No Action Required VITALS: Vitals are noted on the nurse's note and reviewed by myself. Vital signs stable. GENERAL: This is a 52-year-old white female, in no acute distress, nondiaphoretic, well-developed well-nourished. SKIN: The skin was without rashes, erythema, edema, or bruising. There is no tenting of the skin. Capillary refill less than 2 seconds. HEAD: Normocephalic atraumatic. EYES: Conjunctivae without injection, sclerae without icterus. NECK: Supple without nuchal rigidity. No lymphadenopathy. No JVD. HEART: Regular rate and rhythm without murmurs gallops or rubs. LUNGS: Clear to auscultation bilaterally without wheezes, rales or rhonchi. No retractions or accessory muscle use. ABDOMEN: Positive bowel sounds x 4. Diffuse tenderness to palpation with guarding. Left CVA tenderness. Abdomen otherwise soft, without masses or organomegaly. Chan sign negative. No rebound tenderness. MUSCULOSKELETAL: No muscle atrophy, erythema, or edema noted. Full range of motion without joint tenderness in all extremities. No tenderness to palpation. Normal gait. Strength 5/5 throughout. NEURO: Patient was alert and oriented to person place and time. No focal neurological deficits. Diffuse Course Course The patient was seen and evaluated as above. An order was placed for continuous cardiac monitoring. The monitor shows a normal sinus rhythm at a rate of 89 bpm. IV access obtained, labs drawn. Patient medicated with IV Toradol and IV fl uids. Patient requesting more pain medication. She was medicated with IV acetaminophen. Imaging performed and reviewed by myself and radiologist as noted. Labs reviewed by myself. I discussed the findings with the patient at bedside. Recommended admission due to bacteriuria in the setting of kidney stone. Patient was agreeable. Patient is requesting more pain medication. He was medicated with IV morphine. [facility] She did request that I speak with urology I did speak with Dr. Carrion. He advised that the patient can be consulted on for management of this stone in the morning. I discussed the case with the retail manager. Administered Medications Discontinued Medications Sodium Chloride (Nss 1000ml) 1,000 mls @ 999 mls/hr IV .Q1H1M STA Stop: 06/01/22 04:31 Last Infusion: 06/01/22 05:16 Dose: 0 mls/hr Documented By: Admin: 06/01/22 03:42 Dose: 999 mls/hr Documented By: LEBRON Acetaminophen (Ofirmev) 1,000 mg in 100 mls @ 400 mls/hr IV NOW STA Stop: 06/01/22 04:36 Last Infusion: 06/01/22 04:48 Dose: 0 mls/hr Documented By: Admin: 06/01/22 04:32 Dose: 400 mls/hr Documented By: LEBRON Ceftriaxone Sodium (Rocephin) 2,000 mg in 70 mls @ 140 mls/hr IV NOW STA Stop: 06/01/22 04:55 Last Infusion: 06/01/22 05:36 Dose: 0 mls/hr Documented By: Admin: 06/01/22 04:56 Dose: 140 mls/hr Documented By: LEBRON Ketorolac Tromethamine (Ketorolac Tromethamine 15 Mg/Ml Vial) 15 mg IV NOW STA Stop: 06/01/22 03:32 Last Admin: 06/01/22 03:42 Dose: 15 mg Documented By: LEBRON Morphine Sulfate (Morphine Sulfate 2 Mg/Ml Carp) 2 mg IV NOW STA Stop: 06/01/22 04:51 Last Admin: 06/01/22 04:56 Dose: 2 mg Documented By: LEBRON Ondansetron HCl (Ondansetron Inj 2 Mg/Ml 2 Ml Vial) 4 mg IV NOW STA Stop: 06/01/22 03:32 Last Admin: 06/01/22 03:42 Dose: 4 mg Documented By: LEBRON Ondansetron HCl (Ondansetron Inj 2 Mg/Ml 2 Ml Vial) 4 mg IV NOW STA Stop: 06/01/22 05:50 Last Admin: 06/01/22 05:53 Dose: 4 mg Documented By: LEBRON Medical Decision Making Differential Diagnosis Renal colic, UTI, appendicitis, diverticulitis, mesenteric ischemia, aortic pathology, infections, inflammatory bowel disease, PUD, biliary pathology, as well as other pathologies. Medical Records Attestation: I reviewed the patient's medical records. Home Medications Current Medication List: was personally reviewed by me Laboratory Data Attestation: I reviewed the patient's lab results. Very mild leukocytosis of 10.99. No anemia or thrombocytopenia. Renal, hepatic function and electrolytes without significant abnormality. Lipase 27. Urina lysis positive for 4+ bacteria, only 5-10 epithelial cells. COVID-19 testing negative. Urine test negative. Result diagrams: 06/01/22 03:40 06/01/22 03:40 Lab Results 06/01/22 06/01/22 06/01/22 Range/Units 03:40 03:40 03:40 WBC 10.99 H (4.8-10.8) K/ul RBC 4.36 (3.93-5.22) M/uL Hgb 12.7 (12.0-16.0) g/dl Hct 36.4 (34.1-44.9) % MCV 83.5 (80.0-100.0) fL MCH 29.1 (25.0-34.0) pg MCHC 34.9 (32.0-36.0) g/dL RDW Std Deviation 39.7 (36.4-46.3) fL RDW Coeff of Stephan 13.1 (11.5-14.5) % Plt Count 162 (130-400) K/uL MPV 10.3 (9.4-12.3) fL Immature Gran % (Auto) 0.4 % Neut % (Auto) 91.8 % Lymph % (Auto) 5.9 % Spink % (Auto) 1.6 % Eos % (Auto) 0.1 % Baso % (Auto) 0.2 % Neut # (Auto) 10.09 H (1.4-6.5) K/uL Lymph # (Auto) 0.65 L (1.2-3.4) K/uL Spink # (Auto) 0.18 L (0.24-0.82) K/uL Eos # (Auto) 0.01 (0-0.50) K/uL Baso # (Auto) 0.02 (0-0.2) K/uL Immature Gran # (Auto) 0.04 H (0.00-0.02) K/uL Toxic Vacuolation 1+ Sodium 135 L (136-145) mmol/L Potassium 3.4 L (3.5-5.1) mmol/L Chloride 106 (98-107) mmol/L Carbon Dioxide 18 L (21-32) mmol/L Anion Gap 11 (3-11) BUN 19 (6-23) mg/dl Creatinine 0.87 (0.6-1.2) mg/dl Est Cr Clr Drug Dosing Not Reportable Est GFR ( Amer) 87.5 ml/min Est GFR (Non-Af Amer) 75.5 ml/min BUN/Creatinine Ratio 21.8 H (10-20) Glucose 127 H (70-99(Fasting)) mg/dl Calcium 8.9 (8.5-10.1) mg/dl Total Bilirubin 0.7 (0.2-1.0) mg/dl AST 27 (13-39) U/L ALT 41 (7-52) U/L Alkaline Phosphatase 53 (34-104) U/L Total Protein 5.9 L (6.0-8.3) gm/dl Albumin 4.0 (3.4-5.0) gm/dl Globulin 1.9 L (2.5-4.0) gm/dl Albumin/Globulin Ratio 2.1 H (0.9-2) Lipase 27 (11-82) U/L Urine Color Yellow Urine Appearance Clear (Clear) Urine pH 7.0 (4.5-7.5) Ur Specific [place] 1.008 (1.000-1.030) Urine Protein Negative (Negative) Urine Glucose (UA) Negative (Negative) Urine Ketones Negative (Negative) Urine Blood 2+ H (Negative) Urine Nitrite Negative (Negative) Urine Bilirubin Negative (Negative) Urine Urobilinogen Negative (Negative) Ur Leukocyte Esterase Trace H (Negative) Urine WBC (Auto) 5-10 H (0-5) /hpf Urine RBC (Auto) 0-4 (0-4) /hpf U Hyaline Cast (Auto) 0 (0-5) /lpf U Epithel Cells (Auto) 5-10 H (0-5) /lpf Urine Bacteria (Auto) 4+ H (Negative) POC Ur Test (NEG) SARS-CoV-2, RNA, NAAT (NEGATIVE) 06/01/22 06/01/22 Range/Units 03:40 05:03 WBC (4.8-10.8) K/ul RBC (3.93-5.22) M/uL Hgb (12.0-16.0) g/dl Hct (34.1-44.9) % MCV (80.0-100.0) fL MCH (25.0-34.0) pg MCHC (32.0-36.0) g/dL RDW Std Deviation (36.4-46.3) fL RDW Coeff of Stephan (11.5-14.5) % Plt Count (130-400) K/uL MPV (9.4-12.3) fL Immature Gran % (Auto) % Neut % (Auto) % Lymph % (Auto) % Spink % (Auto) % Eos % (Auto) % Baso % (Auto) % Neut # (Auto) (1.4-6.5) K/uL Lymph # (Auto) (1.2-3.4) K/uL Spink # (Auto) (0.24-0.82) K/uL Eos # (Auto) (0-0.50) K/uL Baso # (Auto) (0-0.2) K/uL Immature Gran # (Auto) (0.00-0.02) K/uL Toxic Vacuolation Sodium (136-145) mmol/L Potassium (3.5-5.1) mmol/L Chloride (98-107) mmol/L Carbon Dioxide (21-32) mmol/L Anion Gap (3-11) BUN (6-23) mg/dl Creatinine (0.6-1.2) mg/dl Est Cr Clr Drug Dosing Est GFR ( Amer) ml/min Est GFR (Non-Af Amer) ml/min BUN/Creatinine Ratio (10-20) Glucose (70-99(Fasting)) mg/dl Calcium (8.5-10.1) mg/dl Total Bilirubin (0.2-1.0) mg/dl AST (13-39) U/L ALT (7-52) U/L Alkaline Phosphatase (34-104) U/L Total Protein (6.0-8.3) gm/dl Albumin (3.4-5.0) gm/dl Globulin (2.5-4.0) gm/dl Albumin/Globulin Ratio (0.9-2) Lipase (11-82) U/L Urine Color Urine Appearance (Clear) Urine pH (4.5-7.5) Ur Specific [place] (1.000-1.030) Urine Protein (Negative) Urine Glucose (UA) (Negative) Urine Ketones (Negative) Urine Blood (Negative) Urine Nitrite (Negative) Urine Bilirubin (Negative) Urine Urobilinogen (Negative) Ur Leukocyte Esterase (Negative) Urine WBC (Auto) (0-5) /hpf Urine RBC (Auto) (0-4) /hpf U Hyaline Cast (Auto) (0-5) /lpf U Epithel Cells (Auto) (0-5) /lpf Urine Bacteria (Auto) (Negative) POC Ur Test NEG (NEG) SARS-CoV-2, RNA, NAAT NEGATIVE (NEGATIVE) Imaging Data Radiologist's Impression: Patient: ZAINAB MURRELL (Female) : 66 Status: ER Date: 06/01/22 04:12 Room #: History: PT. REPORTS LT. FLANK PAIN HISTORYOF KIDNEY STONES APPENDIX PRESENT Slices: [id number] Priors: Tech: Kinsey Rojas @ [phone] Exams: CT ABDOMEN & PELVIS Without Contrast Contrast: Accession Numbers: [id number] Referring Physician: ITZEL RICHTER Preliminary Findings Only See Final Report For Complete Findings CT ABDOMEN & PELVIS Without Contrast: Moderate left-sided hydronephrosis is present secondary to an obstructing proximal left ureteral stone measuring 4 x 3 mm located at L2/3 Radiologist: Franck Hemphill MD Study ready at 04:23 and initial results transmitted at 05:01 Blood Pressure Blood Pressure Findings: Normal blood pressure MDM Narrative This 52-year-old female patient presents to the emergency department today for evaluation of sudden onset of left flank pain. Patient was found to have a 4 x 3 mm stone noted in the proximal left ureter with moderate left-sided hydronephrosis. The patient does have evidence of a urinary tract infection with 4+ bacteria in her urine. I do recommend admission given the infection associated with the stone. The patient was agreeable. She was started on IV Ro cephin. Her pain was managed while here in the emergency department. She will be admitted to the [facility] hospitalist group. I did consult with urology as well. Please see hospitalist and urology dictation regarding ongoing management and care of this patient. The chart was completed utilizing [employer] Speech voice recognition software. Grammatical errors, random word insertions, pronoun errors, and incomplete sentences are an occasional consequence of this system due to software limit ations, ambient noise, and hardware issues. Any formal questions or concerns about the content, text, or information contained within the body of this dictation should be directly addressed to the provider for clarification. Impression & Plan Left ureteral stone, UTI (urinary tract infection), Left flank pain Discharge Plan Visit Data Chief Complaint: Flank Pain ED Provider: Itzel Richter ED Midlevel Provider: Arely Hernandez Discharge Problem: Left ureteral stone, UTI (urinary tract infection), Left flank pain Patient Disposition: Admitted As Inpatient Forms Stand Alone Forms: [facility] Prescriptions Prescriptions: No Action lorazepam 0.5 mg tablet 0.5 mg PO Q6 PRN (Reason: Anxiety) Qty: 30 0RF gabapentin 600 mg tablet 600 mg PO TID Qty: 270 3RF albuterol sulfate [Ventolin HFA] 90 mcg/actuation HFA aerosol inhaler See Rx Instructions .ROUTE .COMPLEX Qty: 18 5RF Dose Instruction: INHALE 2 PUFFS BY MOUTH EVERY FOUR HOURS NEEDED FOR ASTHMA Rx Instructions: INHALE 2 PUFFS BY MOUTH EVERY FOUR HOURS NEEDED FOR ASTHMA duloxetine [Cymbalta] 60 mg capsule,delayed release(DR/EC) 60 mg PO DAILY Qty: 90 3RF divalproex 250 mg tablet,delayed release (DR/EC) 250 mg PO HS 90 Days Qty: 90 1RF Emgality Pen 120 mg/mL pen injector See Rx Instructions .ROUTE .COMPLEX Qty: 1 11RF Dose Instruction: INJECT 120MG SUBCUTANEOUSLY MONTHLY Rx Instructions: INJECT 120MG SUBCUTANEOUSLY MONTHLY atorvastatin 20 mg tablet 20 mg PO DAILY Qty: 90 3RF omeprazole 20 mg capsule,delayed release(DR/EC) 20 mg PO DAILY Qty: 90 3RF sertraline 100 mg tablet 100 mg PO DAILY trazodone 50 mg tablet 50 mg PO HS prazosin 1 mg capsule 1 mg PO DAILY sumatriptan succinate 100 mg tablet 100 mg PO Q2H PRN (Reason: migraine headache) Qty: 27 1RF Rx Instructions: do not exceed 2 doses per 24 hrs budesonide-formoterol [Symbicort] 80-4.5 mcg/actuation HFA aerosol inhaler 2 puff inhalation BID Rx Instructions: INHALE 2 PUFFS BY MOUTH TWICE A DAY Referrals Referrals: Jacey Rivers PA-C [Primary Care Provider] -
[2022-06-01] MEDS ORDERED: ONDANSETRON INJ 2 MG/ML 2 ML VIAL IV PRN (07:05)
[2022-06-01] MEDS ORDERED: LORazepam 0.5 MG TAB PO PRN (07:05)
[2022-06-01] MEDS ORDERED: DOCUSATE SODIUM 100 MG CAP PO PRN (07:05)
[2022-06-01] MEDS ORDERED: LACTATED RINGER'S 1,000 ML IV SCH ×3 (07:05→13:30)
[2022-06-01] MEDS ORDERED: MoRPHine SULFATE 4 MG/ML 1 ML CARP\\VIAL IV PRN (07:05)
[2022-06-01] MEDS ORDERED: ALBUTEROL HFA 8 GM INHALER INH PRN (07:05)
[2022-06-01] MEDS ORDERED: Patient's HEIGHT &/or WEIGHT Needed SCH (07:30)
--- NOTE | 2022-06-01 07:50 | CT Scan Report ---
ABDOMEN AND PELVIS CT WITHOUT CONTRAST CT DOSE: 411.85 mGy.cm HISTORY: Acute left-sided flank pain left flank pain TECHNIQUE: Multiaxial CT images of the abdomen and pelvis were performed without contrast. A dose lo wering technique was utilized adhering to the principles of ALARA. COMPARISON STUDY: CT abdomen and pelvis 06/22/2018 FINDINGS: Clear lung bases. No pneumatosis or pneumoperitoneum. The imaged inferior cardiac chambers are unremarkable. The unenhanced spleen, pancreas, adrenal glands, gallbladder and liver appear unrem arkable. There are a few punctate nonobstructing calculi present within the right kidney. Mild to moderate lef t-sided hydroureteronephrosis secondary to an obstructing 5 x 4 x 6 mm calculus within the left urete r at the level of L2-L3. Reactive perinephric and periureteral inflammatory stranding. Punctate nonob structing calculus of the inferior pole left kidney. There are a few scattered cysts again noted with in the left kidney, 2 of which demonstrate layering milk of calcium. Cysts measure up to approximatel y 2 cm. Partial distention of the urinary bladder. Unremarkable uterus. No abdominal aortic aneurysm or lymphadenopathy. There is no bowel obstruction or bowel wall thickening. Mild colonic fecal retention. No CT evidence of acute appendicitis. No ascites or mesenteric inflammation. No acute fracture identified. IMPRESSION: 1. Mild to moderate left-sided hydroureteronephrosis secondary to an obstructing 6 mm calculus of the left ureter at the level of L2-L3. 2. Nonobstructing bilateral nephrolithiasis. 3. No bowel obstruction or bowel wall thickening. ACT 112: Negative or not required by law. The above report was generated using voice recognition software. It may contain grammatical, syntax o r spelling errors. Electronically signed by: Osmar Tena M.D. 06/01/2022 7:47 AM
[2022-06-01] MEDS: FAMOTIDINE 40 MG TABLET PO SCH (08:32)
[2022-06-01] MEDS: GABAPENTIN 600 MG TAB PO SCH ×2 (08:33→15:21)
[2022-06-01] MEDS: TAMSULOSIN HCL 0.4 MG CAP PO SCH (08:33)
--- NOTE | 2022-06-01 08:46 | Electrocardiogram Report ---
Test Reason : Blood Pressure : / mmHG Vent. Rate : 095 BPM Atrial Rate : 095 BPM P-R Int : 124 ms QRS Dur : 082 ms QT Int : 370 ms P-R-T Axes : 041 020 023 degrees QTc Int : 464 ms Poor data quality, interpretation may be adversely affected Normal sinus rhythm Nonspecific T wave abnormality Abnormal ECG When compared with ECG of 26-JUN-2021 15:00, No significant change was found Confirmed by Pepe Rojas ([id number]) on 06/01/2022 8:46:29 AM Referred By: REFERRED SELF Confirmed By:Quintin Rojas
--- NOTE | 2022-06-01 08:50 | Progress Note ---
Date of Service June 01, 2022 Assessment & Plan (1) Left ureteral stone: Plan: 52yo female with a PMH of recurrent nephrolithiasis, asthma, GERD, and recent bronchitis who presents with a one-day history of sudden-onset left flank pain and nausea, with imaging consistent with left nephrolithiasis, and urinalysis consistent with UTI. Patient developed hypotension, tachycardia, and fever after undergoing cystoscopy, L retrograde pyelogram, L stent insertion (06/01) and was transferred to the ICU after failing to improve with multiple fluid boluses. Sepsis secondary to complicated UTI in the setting of L nephrolithiasis Patient with a history of recurrent nephrolithiasis presents with sudden-onset L flank pain; imaging consistent with L nephrolithiasis Urinalysis grossly infected Urine cultures pending No blood cultures were drawn on admission, but were ordered on 05/31 (unfortunately after ceftriaxone had already been initiated) Patient underwent cystoscopy, L retrograde pyelogram, L stent insertion on 06/01 Unfortunately, patient developed fever, tachycardia, and hypotension unresponsive to 2.5L bolus of LR Patient meets SIRS criteria After discussion with ICU attending, will stop ceftriaxone, start zosyn, and transfer patient to ICU IVF, pain control, antiemetics, rest of management per ICU Asthma: continue home inhaler regimen MDD: continue home regimen GERD: continue home regimen HLD: continue home statin Lumbosacral radiculopathy: continue home gabapentin Insomnia: continue home trazodone Migraine: continue home keppra FEN: NPO pending recovery from urologic procedure, LR @ 125mL/hr Code status: full code DVT ppx: SCDs Consults: urology, divinity professor Dispo: ICU Admission and Anticipated Discharge Date Admission Date: June 01, 2022 Supervising Physician Co-Signing Physician Notes I saw and examined patient as well as discussed patient care with Dr. Sloan. Patient has a 6 mm stone providing hydronephrosis. We saw her after her ureteral stent placement and unfortunately she has been tachycardic, hypotensive, and febrile. She initially did not respond to initial IV lactated Ringer's that was pushed. Thus, we discussed overall care with divinity professor and she will be transferred to the intensive care unit for further management. Blood cultures, lactate, and repeat labs all ordered in addition to pr ocalcitonin. We will continue following patient and following intensive care unit recommendations of care.. Subjective This is a pleasant 52 y/o woman with a PMH of asthma, GERD, kidney stones, and recent bronchitis (abx course she recently completed). She presented at the ED this morning (06/01) for pain consist with her previous kidney stones and dysuria. She was admitted for kidney stones and and accompanying UTI. She reports her current pain is about a 4, but the pain increased to a 10 a few hours ago when she felt bilateral epigastric pain that radiated to her back followed by emesis. She reports some pain with urination, no increased frequency or hematuria. She reports nausea, vomiting and some constipation. She is also experiencing, chills, and a headache, but no fever, diaphoresis, or vision changes. She denies any chest pain, palpitations, or lower extremity edema. She last ate around 2pm 05/31/22, and drank "a few beers" to help pass the stone. Review of Systems Constitutional: + chills; no fever Eyes: No vision changes Respiratory: no cough and no dyspnea Cardiovascular: no chest pain Additional Comments: no palpitations no diaphoresis Gastrointestinal: Nausea and vomitting this morning, no hematuria, or dysuria. Genitourinary: + dysuria; no hematuria Musculoskeletal: + back pain (Left flank) Edema in phalanges bilaterally (pt reports his is baseline for her) Physical Exam Physical Exam: Constitutional: tired-appearing, NAD, laying in hospital bed HEENT: NCAT, no conjunctival injection CV: tachycardic, regular rhythm, no murmur appreciated, extremities well- perfused, no LE edema Resp: CTABL, no wheezes/rales/rhonchi appreciated, no increased work of breathing GI: soft, nondistended, moderate tenderness of LUQ and LLQ MSK: flank tenderness exam deferred due to patient being immediately post-op Skin: warm, dry, no rash appreciated Neuro: somnolent but easily arousable to voice, oriented x4, no focal neurologic deficit appreciated Constitutional: Alert and oriented, in no distress, in discomfort. Eyes: no conjunctival abnormality ENMT: Dry mucus membranes Respiratory: normal respiratory effort (Clear to ausculation bilaterally ); no respiratory distress and no labored breathing Cardiovascular: Rate/Rhythm: regular rate (No murmurs rubs or gallops appreciated) and regular rhythm <2 second capillary refill Gastrointestinal (Abdomen): Normal bowel sounds, pain to palpation (LUQ and LLQ), Left CVA tenderness Musculoskeletal: Some edema in fingers Skin: no rashes Results & Data ([facility]) Vital Signs (Past 12 Hours) Vital Signs Temp Pulse Pulse Resp BP BP Pulse Ox 06/01/22 06:30 104/67 06/01/22 06:44 37.5 C 114 H 22 96 06/01/22 05:00 89 22 124/57 L 98 06/01/22 03:50 70 22 98 06/01/22 03:28 37.2 C 79 22 106/70 98 O2 Del Method 06/01/22 06:30 06/01/22 06:44 06/01/22 05:00 Room Air 06/01/22 03:50 Room Air 06/01/22 03:28 Resident Activity Tracking Resident Involvement: Resident Care Provided Care Provided: Adult Hospital Medicine
[2022-06-01] MEDS ORDERED: DULoxetine HCL 60 MG CAP PO SCH (09:00)
[2022-06-01] MEDS ORDERED: ATORVASTATIN 20 MG TAB PO SCH (09:00)
[2022-06-01] MEDS ORDERED: SERTRALINE HCL 100 MG TABLET PO SCH (09:00)
[2022-06-01] MEDS ORDERED: FLUTICASONE/VILANTEROL 100/25MCG 14 PUFFS/INHALER INH SCH (09:00)
--- NOTE | 2022-06-01 09:03 | Urology Progress Note ---
Date of Service June 01, 2022 Assessment & Plan (1) Left ureteral stone: (2) Left flank pain: (3) UTI (urinary tract infection): Plan 52yo F admitted with an obstructing 6mm left ureteral stone and concern for UTI. -Afebrile and hemodynamically stable. -Labs reviewed-WBC 10.99, creatinine 0.87. -UA suggestive of infection, culture pending. -On IV ceftriaxone, follow culture. -Given her intractable left flank pain and concern for UTI in the setting of an obstructing left ureteral stone, will proceed to the OR today for cystoscopy, left retrograde pyelogram, left ureteral stent placement. -Risks and benefits to be reviewed with patient by Dr. Dubon. OR notified. COVID test negative. Covered with scheduled IV Ceftriaxone. -Keep NPO. -Continue supportive care and pain management. -Urology will follow. Admission and Anticipated Discharge Date Admission Date: June 01, 2022 Supervising Physician Co-Signing Physician Notes Agree with note above. Due to obstructing left ureteral calculus and concern for infection, will proceed with cystoscopy and left ureteral stent placement Subjective Pt examined at bedside in the ED. Awake, resting in bed on arrival. No acute distress. Still with left flank pain, managing with IV pain medication. No fevers. Some nausea. Notes some dysuria, no hematuria. Last had something to eat/drink around 2AM. CT a/p- 1. Mild to moderate left-sided hydroureteronephrosis secondary to an obstructing 6 mm calculus of the left ureter at the level of L2-L3. 2. Nonobstructing bilateral nephrolithiasis. 3. No bowel obstruction or bowel wall thickening. Review of Systems Constitutional: as per Subjective / HPI Genitourinary: as per Subjective / HPI Physical Exam Constitutional: no acute distress Respiratory: no respiratory distress and no labored breathing Neurologic: awake Psychiatric: Orientation: alert and oriented x 3 Results & Data ([facility]) Vital Signs (Past 12 Hours) Vital Signs Temp Pulse Pulse Resp BP BP Pulse Ox 06/01/22 06:30 104/67 06/01/22 06:44 37.5 C 114 H 22 96 06/01/22 05:00 89 22 124/57 L 98 06/01/22 03:50 70 22 98 06/01/22 03:28 37.2 C 79 22 106/70 98 O2 Del Method 06/01/22 06:30 06/01/22 06:44 06/01/22 05:00 Room Air 06/01/22 03:50 Room Air 06/01/22 03:28 PG Care Time/CCT Total # of Minutes Spent Total Time Spent with Patient: Total time spent is greater than 50% in coordination of care (as documented) at patient's floor/unit and/or counseling patient: Coding Level of Care Code None Diagnoses Left ureteral stone N20.1 Left flank pain R10.9 UTI (urinary tract infection) N39.0
--- NOTE | 2022-06-01 10:06 | Anesthesiology Consultation ---
Date of Service June 01, 2022 History Surgery Operation Date: 06/01/22 08:40 Proposed Procedures p Cystoscopy, Left Retrograde Pyelogram, Left Stent Insertion - Mohinder Dubon MD Height/Weight Height: 5 ft 5 in Weight: 70 kg Allergies Allergy/AdvReac Type Severity Reaction Status Date / Time meloxicam Allergy Intermediate GI SYMPTOMS Verified 01/07/22 14:07 Medications Home Medications Medication Instructions Recorded Confirmed Last Taken prazosin 1 mg capsule 1 mg PO DAILY 03/28/19 06/01/22 06/26/21 lorazepam 0.5 mg tablet 0.5 mg PO Q6 PRN Anxiety #30 tabs 10/19/20 06/01/22 Unknown Ventolin HFA 90 mcg/actuation See Rx Instructions .Route 04/21/21 06/01/22 Unknown aerosol inhaler (albuterol sulfate) .COMPLEX #18 Inhalers gabapentin 600 mg tablet 600 mg PO TID #270 tabs 04/21/21 06/01/22 06/26/21 budesonide-formoterol HFA 80 2 puff inhalation BID 06/26/21 06/01/22 Unknown mcg-4.5 mcg/actuation aerosol inhaler (Symbicort) sumatriptan succinate 100 mg tablet 100 mg PO Q2H PRN migraine 09/29/21 01/07/22 Unknown headache #27 tabs duloxetine 60 mg capsule,delayed 60 mg PO DAILY #90 caps 11/09/21 06/01/22 Unknown release (Cymbalta) sertraline 100 mg tablet 100 mg PO DAILY 01/07/22 06/01/22 Unknown trazodone 50 mg tablet 50 mg PO HS 01/07/22 06/01/22 Unknown divalproex 250 mg tablet,delayed 250 mg PO HS 90 days #90 tabs 01/17/22 06/01/22 Unknown release galcanezumab-gnlm 120 mg/mL See Rx Instructions .Route 04/06/22 06/01/22 Unknown subcutaneous pen injector .COMPLEX #1 mL (Emgality Pen) atorvastatin 20 mg tablet 20 mg PO DAILY #90 tabs 05/17/22 06/01/22 Unknown omeprazole 20 mg capsule,delayed 20 mg PO DAILY #90 caps 05/17/22 06/01/22 Unknown release Active Medications Generic Name Dose Route Start Last Admin Trade Name Freq PRN Reason Stop Dose Admin Atorvastatin Calcium 20 mg 06/01/22 09:00 06/01/22 08:32 Atorvastatin 20 Mg Tab PO 07/01/22 08:59 Not Given DAILY ELTON Duloxetine HCl 60 mg 06/01/22 09:00 06/01/22 08:32 Duloxetine Hcl 60 Mg Cap PO 07/01/22 08:59 Not Given DAILY ELTON Famotidine 40 mg 06/01/22 09:00 06/01/22 08:32 Famotidine 40 Mg Tablet PO 07/01/22 08:59 Not Given QAM ELTON Fluticasone/Vilanterol 1 puffs 06/01/22 09:00 06/01/22 08:39 Fluticasone/Vilanterol 100/25mcg 14 Puffs/Inhaler INH 07/01/22 08:59 1 puffs DAILY ELTON Administration Protocol Gabapentin 600 mg 06/01/22 09:00 06/01/22 08:33 Gabapentin 600 Mg Tab PO 07/01/22 08:59 Not Given TID ELTON Lactated Ringer's 1,000 mls @ 125 mls/hr 06/01/22 07:05 06/01/22 08:39 Lr IV 06/01/22 23:04 125 mls/hr .Q8H ELTON Administration Sertraline HCl 100 mg 06/01/22 09:00 06/01/22 08:33 Sertraline Hcl 100 Mg Tablet PO 07/01/22 08:59 Not Given DAILY ELTON Tamsulosin HCl 0.4 mg 06/01/22 09:00 06/01/22 08:33 Tamsulosin Hcl 0.4 Mg Cap PO 07/01/22 08:59 Not Given QAM ELTON Past Medical History Medical History Abnormal brain MRI Asthma Depression Essential hypertension Fibromyalgia Gastro-esophageal reflux disease without esophagitis Hyperlipidemia Kidney stones Migraine Past Family History Family History Mother COPD (chronic obstructive pulmonary disease) Diabetes Father Aneurysm of abdominal aorta Unknown Cardiac disorder Brother Kidney stones Other Family history non-contributory Heart disease Hypertension Denies family history of Ovarian cancer Prostate cancer Breast cancer Lung cancer Colorectal cancer Past Surgical History Surgical History History of lithotripsy renal History of tubal ligation Hx of abdominal surgery Social History Smoking Status: Never smoker Hx Alcohol Use: No Hx Substance Use: No Physical Exam Vital Signs Last Vital Signs Temp 37.6 C H 06/01/22 09:30 Pulse 123 H 06/01/22 09:30 Resp 22 06/01/22 09:30 BP 94/48 L 06/01/22 09:30 Pulse Ox 95 06/01/22 09:30 O2 Del Method 06/01/22 09:30 O2 Flow Rate 0 06/01/22 09:30 Testing Laboratory Results 06/01/22 03:40 06/01/22 03:40 Urine Color Yellow 06/01/22 03:40 Urine Appearance Clear (Clear) 06/01/22 03:40 Urine pH 7.0 (4.5-7.5) 06/01/22 03:40 Ur Specific Fackler 1.008 (1.000-1.030) 06/01/22 03:40 Urine Protein Negative (Negative) 06/01/22 03:40 Urine Glucose (UA) Negative (Negative) 06/01/22 03:40 Urine Ketones Negative (Negative) 06/01/22 03:40 Urine Nitrite Negative (Negative) 06/01/22 03:40 Ur Leukocyte Esterase Trace (Negative) H 06/01/22 03:40 Urine WBC (Auto) 5-10 /hpf (0-5) H 06/01/22 03:40 Urine RBC (Auto) 0-4 /hpf (0-4) 06/01/22 03:40 U Hyaline Cast (Auto) 0 /lpf (0-5) 06/01/22 03:40 U Epithel Cells (Auto) 5-10 /lpf (0-5) H 06/01/22 03:40 Urine Bacteria (Auto) 4+ (Negative) H 06/01/22 03:40 06/01/22 03:40 POC Ur Test NEG Electrocardiogram Date: 06/01/22 Findings: + NSR @ (95)
[2022-06-01] MEDS ORDERED: LIDOCAINE 2% 20 MG/ML 5 ML SYR IV ONE (11:11)
[2022-06-01] MEDS ORDERED: fentaNYL citrate 100 MCG/2 ML VIAL ONE (11:11)
[2022-06-01] MEDS ORDERED: MIDAZOLAM HCL 1 MG/ML 2ML VIAL ONE (11:11)
[2022-06-01] MEDS ORDERED: PROPOFOL IV EMULSION 10 MG/ML 20 ML VIAL IV ONE (11:11)
[2022-06-01] MEDS ORDERED: LACTATED RINGER'S 500 ML IV ONE ×2 (11:51→13:27)
[2022-06-01] MEDS ORDERED: ATROPINE SULFATE 0.1 MG/ML 10ML SYR IV PRN (12:26)
[2022-06-01] MEDS ORDERED: ePHEDrine sulfate 50 MG/ML AMP IV PRN (12:26)
[2022-06-01] MEDS ORDERED: DIATRIZOATE MEGLUMINE 30% 100ML VIAL INSTIL ONE (12:47)
--- NOTE | 2022-06-01 12:47 | Post Operative Brief Note ---
PG Immediate Post Op with CF Date of Surgery June 01, 2022 Pre & Post Diagnosis Operation Date: 06/01/22 08:40 Pre-Op Diagnosis: Left Ureteral Stone Post-Op Diagnosis: Left Ureteral Stone I identified the patient and participated in the time-out.: Yes Procedure Operation Date: 06/01/22 08:40 Actual Procedures p Cystoscopy, Left Retrograde Pyelogram, Left Stent Insertion(Left) - Mohinder Dubon MD Surgeon Mohinder Dubon MD Supervisor Drilling And Shooting None Estimated Blood Loss 0 Findings See Below Mild left hydronephrosis on retrograde. Obstructed urine after wire in place but no obvious purulence. Stent in appropriate position. Drains Crowell Catheter and Other (6x24 L stent ) Complications none
--- NOTE | 2022-06-01 12:57 | Operative Report ---
PG Post Operative Report Pre & Post Diagnosis Operation Date: 06/01/22 08:40 Pre-Op Diagnosis: Left Kidney Stone Post-Op Diagnosis: Left Kidney Stone I identified the patient and participated in the time-out.: Yes Procedure Operation Date: 06/01/22 08:40 Actual Procedures p Cystoscopy, Left Retrograde Pyelogram, Left Stent Insertion(Left) - Mohinder Dubon MD Surgeon Mohinder Dubon MD Crime Scene Investigator None Estimated Blood Loss 0 Findings See Below Mild left hydronephrosis on retrograde. Obstructed urine after wire in place but no obvious purulence. Stent in appropriate position. Specimens None Drains 1. 6 Lao by 24 cm left ureteral stent 2. 16 Lao Crowell catheter with 10 cc in balloon Anesthesia Type MAC Complications none Indications 52-year-old female with a left obstructing ureteral calculus and concerns for sepsis. Initially stable but urine was infected. She then became tachycardic, hypotensive and febrile. Taken immediately to the OR for stent placement. Description of Procedure After informed consent was obtained, the patient was transported operative suite. MAC anesthesia was induced. The patient was placed in dorsal lithotomy position prepped and draped in a sterile fashion. They received preoperative ceftriaxone for antibiotic prophylaxis. An appropriate surgical timeout was performed. A 22 Lao rigid scope was inserted per urethra into the bladder. Carson cystoscopy revealed no stones or lesions. I turned my attention the left ureteral orifice and intubated this with a 5 Lao open-ended catheter. A left retrograde pyelogram was shot which showed mild left hydronephrosis. A sensor wire was advanced into the kidney and confirmed fluoroscopically. A 6 Lao by 24 cm left ureteral stent was deployed with a good proximal coil in the renal pelvis and a good distal coil noted in the bladder. These were confirmed fluoroscopically and under direct visualization, respectively. The bladder was left full and the scope was removed. 16 Lao catheter was placed with return of clear urine. Balloon inflated with 10 cc of sterile water. This concluded the end of the case. All counts were correct at the end of the case. I was present, scrubbed, and actively participated for the entirety of the procedure. I attest to the content of the Intraoperative Record and any orders documented therein. Any exceptions are noted below.
[2022-06-01] MEDS ORDERED: PHENYLEPHRINE HCL 10 MG/ML VIAL ONE (13:00)
[2022-06-01] MEDS ORDERED: ACETAMINOPHEN 1000 MG/100 ML IV IV ONE (13:11)
[2022-06-01] MEDS ORDERED: LACTATED RINGER'S 1,000 ML IV ONE (13:27)
--- NOTE | 2022-06-01 13:49 | Anesthesiology Progress Note ---
Date of Service June 01, 2022 Anesthesia Post Procedure Vital Signs Vital Signs: Temp Pulse Pulse Resp BP BP BP 06/01/22 13:05 119 H 24 94/40 L 06/01/22 12:55 38.5 C H 120 H 27 H 90/43 L 06/01/22 12:08 38.5 C H 125 H 20 83/46 L 06/01/22 11:56 131 H 18 84/54 L 06/01/22 11:43 132 H 23 87/54 L 06/01/22 11:06 134 H 22 89/56 L 06/01/22 09:30 37.6 C H 123 H 22 94/48 L 06/01/22 06:30 104/67 06/01/22 06:44 37.5 C 114 H 22 06/01/22 05:00 89 22 124/57 L 06/01/22 03:50 70 22 06/01/22 03:28 37.2 C 79 22 106/70 Pulse Ox O2 Del Method O2 Flow Rate 06/01/22 13:05 96 Oxymask 6 06/01/22 12:55 96 Oxymask 6 06/01/22 12:08 94 Room Air 06/01/22 11:56 99 06/01/22 11:43 96 06/01/22 11:06 99 06/01/22 09:30 95 Room Air 0 06/01/22 06:30 06/01/22 06:44 96 06/01/22 05:00 98 Room Air 06/01/22 03:50 98 Room Air 06/01/22 03:28 98 Pain Intensity Left Flank: Pain Intensity: 5 Transfer of Care Handoff Completed per policy Notes Mental Status: alert / awake / arousable Patient Amnestic to Procedure: Yes Nausea / Vomiting: adequately controlled Pain: adequately controlled Airway Patency, RR, SpO2: stable & adequate BP & HR: see Notes below (patient has urosepsis ,hydronephrosis and has a kidney stone;+ hypotension and tachycardia) Hydration State: see Notes below (patient is volume depleted 2ndary to urosepsis) Anesthetic Complications: no major complications apparent Notes: Patient is febrile and volume depleted and hypotensive in PACU. She is being administered crystalloid for volume;acetaminophen IV for fever; antibiotics for sepsis; patient will be transferred to ICU as per Dr Dubon.
[2022-06-01 14:54] LABS: Hematocrit (blood only) 33.4 % (34.1-44.9); Hemoglobin 11.5 g/dl (12.0-16.0); Mean Corpuscular Hemoglobin 29.1 pg (25.0-34.0); Mean Corpuscular Hgb Conc 34.4 g/dL (32.0-36.0); Mean Corpuscular Volume 84.6 fL (80.0-100.0); Mean Platelet Volume 10.8 fL (9.4-12.3); Platelet Count 120 K/uL (130-400); RDW Coefficient of Variation 13.9 % (11.5-14.5); RDW Standard Deviation 42.5 fL (36.4-46.3); Red Blood Count 3.95 M/uL (3.93-5.22); White Blood Count 12.54 K/ul (4.8-10.8)
[2022-06-01 14:58] LABS: Creatinine Urine Random 53.6 mg/dl
--- NOTE | 2022-06-01 15:03 | Fluoroscopy Report ---
FL retrograde includes kub CLINICAL HISTORY: Left ureteral stent placement. COMPARISON STUDY: Abdomen and pelvis CT 06/01/2022. FLUOROSCOPY TIME: 6 seconds. FINDINGS: 2 fluoroscopic spot images of the abdomen demonstrate retrograde opacification of the left renal collecting system followed by placement of a left ureteral stent. Only the proximal portion of the stent is identified and appears in good position. IMPRESSION: Fluoroscopic assistance provided for left ureteral stent placement ACT 112: Negative or not required by law. Electronically signed by: Devin Mcginnis M.D. 06/01/2022 3:01 PM
[2022-06-01 15:25] LABS: Basophils # (auto) 0.02 K/uL (0-0.2); Basophils % (auto) 0.2 %; Eosinophils # (auto) 0.01 K/uL (0-0.50); Eosinophils % (auto) 0.1 %; Immature Granulocytes # (auto) 0.15 K/uL (0.00-0.02); Immature Granulocytes % (auto) 1.2 %; Lymphocytes % (auto) 3.2 %; Monocytes # (auto) 0.23 K/uL (0.24-0.82); Monocytes % (auto) 1.8 %; Neutrophils # (auto) 11.73 K/uL (1.4-6.5); Neutrophils % (auto) 93.5 %; Toxic Vacuolation 1+
[2022-06-01] MEDS: MoRPHine SULFATE 2 MG/ML CARP IV PRN (15:34)
[2022-06-01 15:40] LABS: Albumin Globulin Ratio 1.9 (0.9-2); Albumin Level 3.4 gm/dl (3.4-5.0); BUN Creatinine Ratio 17.8 (10-20); Bilirubin,Total 0.4 mg/dl (0.2-1.0); Calcium 7.9 mg/dl (8.5-10.1); Est GFR (African American) 68.2 ml/min; Est GFR (Non-African American) 58.8 ml/min; Globulin 1.8 gm/dl (2.5-4.0); Magnesium 1.1 mg/dl (1.7-2.4); Phosphorus 3.8 mg/dl (2.5-4.9); Potassium 4.1 mmol/L (3.5-5.1); Total Protein 5.2 gm/dl (6.0-8.3)
--- NOTE | 2022-06-01 15:53 | Electrocardiogram Report ---
Test Reason : Blood Pressure : / mmHG Vent. Rate : 133 BPM Atrial Rate : 133 BPM P-R Int : 136 ms QRS Dur : 080 ms QT Int : 302 ms P-R-T Axes : 041 040 010 degrees QTc Int : 449 ms Sinus tachycardia Nonspecific ST abnormality Abnormal ECG When compared with ECG of 01-JUN-2022 05:50, Nonspecific T wave abnormality no longer evident in Anterior leads Confirmed by Pepe Rojas ([id number]) on 06/01/2022 3:53:07 PM Referred By: REFERRED SELF Confirmed By:Quintin Rojas
--- NOTE | 2022-06-01 16:11 | Critical Care Consultation ---
Date of Consultation June 01, 2022 Assessment & Plan (1) Left ureteral stone: (2) Shock circulatory: (3) Depression: (4) Fibromyalgia: (5) Asthma: (6) Gastro-esophageal reflux disease without esophagitis: Plan Reason Critically Ill: 52-year-old female past medical history of nephrolithiasis presented to the hospital with complaints of abdominal pain nausea and vomiting. Was found to have left-sided hydronephrosis. Patient went for cystoscopy for stent placement, patient was hypotensive postprocedure with fever. She was admitted to the ICU for further management and requirement for vasopressors if need be Neuro - CAM ICU: Negative --Depression On divalproex and duloxetine at home Cardiac - -- Shock Likely septic from UTI Responded to fluids Keep MAP greater than 65 Add vasopressors if need be --History of hypertension Hold blood pressure medication Respiratory - -- Asthma On Symbicort at home Recently had bronchitis for which she got prednisone as an outpatient and antibiotic Continue with Breo while in the hospital GI - --Transaminitis Likely from hypotensive episode Continue to monitor -- GERD Continue with Pepcid RENAL/LYTES - Monitor BUNs/creatinine Avoid nephrotoxic medication - --Nephrolithiasis S/p cystoscopy 06/01/2022 Continue with ureteral stent Urology on board ENDO - Continue with ICU hypoglycemia protocol HEME - -- Thrombocytopenia Likely secondary to sepsis Continue to monitor Monitor H&H ID - -- Left-sided hydronephrosis with nephrolithiasis S/p cystoscopy 06/01/2022 Follow-up urine culture, follow-up blood culture Procalcitonin 11.29 Covid-19 NAAT negative --Prophylaxis VTE: IPC GI: Pepcid Lines: Peripheral Diet: Clear liquid Plan: Continue with to cover for gram-negative's Patient is +7 L since coming to the hospital while in the ICU as per the records. No more fluids to be given. I will order a chest x-ray to see how her lungs look like now. If blood pressure goes less than MAP of 65 and I will start the patient on Levophed. I have personally spent 55 minutes of critical care time in the direct management of this patient. This is a life/limb threatening event. This includes time spent evaluating patient, direct bedside care, chart review, placing orders, interpretation of diagnostic studies, discussion with consultants, patient, and family members, as well as other required patient management activities. This time is exclusive of all separately billable procedures, and teaching time and separate from and in addition to any other critical care service time. History of Present Illness Attending Physician: Norris Ballesteros DO History of Present Illness 52-year-old female presents to the hospital with complaints of left-sided flank pain along with nausea and vomiting Past medical history: Asthma with asthmatic bronchitis, dyslipidemia, GERD, fibromyalgia, depression/anxiety, nephrolithiasis Patient was found to have left-sided hydronephrosis for which she went to the OR for stent placement. In the PACU patient was found to be hypotensive and sent to ICU for further management give a brief signout regarding the patient. Patient had received Rocephin in the ER along with 1 L of fluid In the PACU she got 2 L of IV fluid. In the MAR right now he says the patient is +7 L. At the time of examination patient systolic blood pressure was in the 100s. Map was in the 70s. She complained of left-sided flank pain. Denied any issues with her breathing. No chest pain But whenever she took deep breath she did complain of pain in the left flank Patient was saturating 98-99% on 2 L nasal cannula while lying flat at the time of examination. Did have nausea and vomiting prior to coming to the ER. No nausea or vomiting since being in the hospital Denies headache, no blurry vision No diarrhea Social history: Lifetime non-smoker. Allergies Allergy/AdvReac Type Severity Reaction Status Date / Time meloxicam Allergy Intermediate GI SYMPTOMS Verified 01/07/22 14:07 Home Medications Medication Instructions Recorded Confirmed Type prazosin 1 mg capsule 1 mg PO DAILY 03/28/19 06/01/22 History lorazepam 0.5 mg tablet 0.5 mg PO Q6 PRN Anxiety #30 tabs 10/19/20 06/01/22 Rx Ventolin HFA 90 mcg/actuation See Rx Instructions .Route 04/21/21 06/01/22 Rx aerosol inhaler (albuterol sulfate) .COMPLEX #18 Inhalers gabapentin 600 mg tablet 600 mg PO TID #270 tabs 04/21/21 06/01/22 Rx budesonide-formoterol HFA 80 2 puff inhalation BID 06/26/21 06/01/22 History mcg-4.5 mcg/actuation aerosol inhaler (Symbicort) sumatriptan succinate 100 mg tablet 100 mg PO Q2H PRN migraine 09/29/21 01/07/22 Rx headache #27 tabs duloxetine 60 mg capsule,delayed 60 mg PO DAILY #90 caps 11/09/21 06/01/22 Rx release (Cymbalta) sertraline 100 mg tablet 100 mg PO DAILY 01/07/22 06/01/22 History trazodone 50 mg tablet 50 mg PO HS 01/07/22 06/01/22 History divalproex 250 mg tablet,delayed 250 mg PO HS 90 days #90 tabs 01/17/22 06/01/22 Rx release galcanezumab-gnlm 120 mg/mL See Rx Instructions .Route 04/06/22 06/01/22 Rx subcutaneous pen injector .COMPLEX #1 mL (Emgality Pen) atorvastatin 20 mg tablet 20 mg PO DAILY #90 tabs 05/17/22 06/01/22 Rx omeprazole 20 mg capsule,delayed 20 mg PO DAILY #90 caps 05/17/22 06/01/22 Rx release Patient History Medical History Abnormal brain MRI Asthma Depression Essential hypertension Fibromyalgia Gastro-esophageal reflux disease without esophagitis Hyperlipidemia Kidney stones Migraine Surgical History History of lithotripsy renal History of tubal ligation Hx of abdominal surgery Family History Mother COPD (chronic obstructive pulmonary disease) Diabetes Father Aneurysm of abdominal aorta Unknown Cardiac disorder Brother Kidney stones Other Family history non-contributory Heart disease Hypertension Denies family history of Ovarian cancer Prostate cancer Breast cancer Lung cancer Colorectal cancer Social History Smoking Status: Never smoker Second Hand Exposure: Yes; Hx Alcohol Use: No Hx Substance Use: No Preferred Language: Palauan Communication Ability: Effective X Ray Equipment Mechanic Required: No Beliefs That Will Affect Care: None marital status: Single Current Living Situation: Significant Other Current Living Situation Comment: Lives w/ 30 year old son current occupational status: disabled Feels Safe at Home: Yes Childhood Exposure to Second-Hand Smoke: Yes caffeine: Yes Dental Care, Regularly: Yes Physical Activity Frequency: Does not Exercise Physical Activity Frequency Comment: Unable to exercise due to pain Seatbelt Use: always Sunscreen Use: No (Is sensitive to sun, avoids being in the sunlight ) Assistive Devices: Glasses Review of Systems Review of Systems: All systems reviewed & are unremarkable except as noted in HPI & below Physical Exam Physical Exam: Constitutional: No acute distress HEENT: EOMI, PERRLA Respiratory system: Decreased air entry bilaterally, no wheeze, rhonchi, positive crackles bilaterally CVS: S1-S2 positive, no murmurs or gallops tachycardia Abdomen: Soft, nondistended, positive bowel sounds x4, left flank tenderness, no rebound Extremities: +2 pulses bilaterally radialis/ dorsalis pedis, no cyanosis, no edema Neuro: Awake alert oriented x3 Psych: Normal mood and affect G/U: Positive Crowell Skin: no rashes, warm and dry Lymphatic: no cervical or axillary lymphadenopathy Results & Data Results & Data ([facility]) Vital Signs (Past 12 Hours) Vital Signs Temp Pulse Resp BP BP Pulse Ox O2 Del Method 06/01/22 15:48 Nasal Cannula 06/01/22 14:40 115 H 20 100/49 L 93 Nasal Cannula 06/01/22 14:15 113 H 23 90/49 L 94 Nasal Cannula 06/01/22 14:35 116 H 17 88/51 L 95 Nasal Cannula 06/01/22 14:05 115 H 21 84/41 L 94 Nasal Cannula 06/01/22 13:55 115 H 21 90/36 L 94 Nasal Cannula 06/01/22 13:45 37.9 C H 113 H 25 H 97/46 L 98 Nasal Cannula 06/01/22 13:25 117 H 22 89/41 L 100 Oxymask 06/01/22 13:15 116 H 23 92/45 L 100 Oxymask 06/01/22 13:05 119 H 24 94/40 L 96 Oxymask 06/01/22 13:35 116 H 25 H 90/38 L 98 Oxymask 06/01/22 12:55 38.5 C H 120 H 27 H 90/43 L 96 Oxymask 06/01/22 12:08 38.5 C H 125 H 20 83/46 L 94 Room Air 06/01/22 11:56 131 H 18 84/54 L 99 06/01/22 11:43 132 H 23 87/54 L 96 06/01/22 11:06 134 H 22 89/56 L 99 06/01/22 09:30 37.6 C H 123 H 22 94/48 L 95 Room Air 06/01/22 06:30 104/67 06/01/22 06:44 37.5 C 114 H 22 96 06/01/22 05:00 89 22 124/57 L 98 Room Air O2 Flow Rate 06/01/22 15:48 1 06/01/22 14:40 4 06/01/22 14:15 4 06/01/22 14:35 4 06/01/22 14:05 4 06/01/22 13:55 4 06/01/22 13:45 4 06/01/22 13:25 4 06/01/22 13:15 4 06/01/22 13:05 6 06/01/22 13:35 4 06/01/22 12:55 6 06/01/22 12:08 06/01/22 11:56 06/01/22 11:43 06/01/22 11:06 06/01/22 09:30 0 06/01/22 06:30 06/01/22 06:44 06/01/22 05:00 Laboratory Results 06/01/22 14:19 06/01/22 14:18 Coding Level of Care Code Critical Care 1st 30-74 mins Diagnoses Left ureteral stone N20.1 Shock circulatory R57.9 Depression F32.9 Fibromyalgia M79.7 Asthma J45.909 Gastro-esophageal reflux disease without esophagitis K21.9 Time Spent (min) 55
[2022-06-01] MEDS: MAGNESIUM SULFATE / D5W 1 GM/100 ML BAG IV SCH ×2 (16:24→18:50)
[2022-06-01] MEDS ORDERED: PIPERACILLIN/TAZOBACTAM 4.5 GM in DEXTROSE 5% 100 ML IV SCH (16:30)
--- NOTE | 2022-06-01 17:40 | XRay Report ---
XR chest 1V portable CLINICAL HISTORY: f/u COMPARISON STUDY: Chest radiograph June 26, 2021. FINDINGS: There is no pneumothorax. No definite pleural effusion. Left basilar opacity is noted. Ther e is suspected mild right basilar opacity as well. There is pulmonary vascular congestion without ezequiel dence for overt pulmonary edema. Cardiomediastinal silhouette is within normal limits. IMPRESSION: 1. Bibasilar opacities which favor atelectasis. 2. Pulmonary vascular congestion without overt pulmonary edema. ACT 112: Negative or not required by law. Electronically signed by: Reymundo Foley M.D. 06/01/2022 5:39 PM
[2022-06-01] MEDS: ACETAMINOPHEN 325 MG TAB PO PRN ×2 (19:28→23:50)
[2022-06-01] MEDS ORDERED: DIVALPROEX DELAY RELEASE 250 MG TABEC PO SCH (21:00)
[2022-06-01] MEDS ORDERED: traZODone HCL 50 MG TAB PO SCH (21:00)
[2022-06-01] MEDS ORDERED: DIVALPROEX DELAY RELEASE 250 MG TABEC PO ONE (21:18)
[2022-06-01] MEDS: PIPERACILLIN/TAZOBACTAM 3.375 GM in DEXTROSE 5% 100 ML IV SCH (21:43)
[2022-06-02] MEDS: MoRPHine SULFATE 2 MG/ML CARP IV PRN (04:15)
[2022-06-02] MEDS: PIPERACILLIN/TAZOBACTAM 3.375 GM in DEXTROSE 5% 100 ML IV SCH ×3 (05:13→21:22)
[2022-06-02 05:15] LABS: Hematocrit (blood only) 34.2 % (34.1-44.9); Hemoglobin 11.6 g/dl (12.0-16.0); Mean Corpuscular Hemoglobin 29.2 pg (25.0-34.0); Mean Corpuscular Hgb Conc 33.9 g/dL (32.0-36.0); Mean Corpuscular Volume 86.1 fL (80.0-100.0); Mean Platelet Volume 10.1 fL (9.4-12.3); Platelet Count 100 K/uL (130-400); RDW Coefficient of Variation 14.5 % (11.5-14.5); RDW Standard Deviation 45.1 fL (36.4-46.3); Red Blood Count 3.97 M/uL (3.93-5.22); White Blood Count 15.09 K/ul (4.8-10.8)
[2022-06-02 05:52] LABS: BUN Creatinine Ratio 16.1 (10-20); Calcium 8.3 mg/dl (8.5-10.1); Creatinine Clr Calc Pharmacy 56.4 ml/min; Est GFR (African American) 64.5 ml/min; Est GFR (Non-African American) 55.6 ml/min; Potassium 4.2 mmol/L (3.5-5.1)
[2022-06-02] MEDS ORDERED: cefTRIAXone SODIUM 1,000 MG in DEXTROSE 5% 50 ML IV SCH (06:00)
[2022-06-02] MEDS: ACETAMINOPHEN 325 MG TAB PO PRN (06:37)
[2022-06-02 07:43] LABS: Albumin Level 3.3 gm/dl (3.4-5.0); Bilirubin Direct 0.2 mg/dl (0-0.2); Bilirubin,Total 0.5 mg/dl (0.2-1.0); Magnesium 2.3 mg/dl (1.7-2.4); Phosphorus 3.1 mg/dl (2.5-4.9); Total Protein 5.2 gm/dl (6.0-8.3)
--- NOTE | 2022-06-02 08:27 | Critical Care Progress Note ---
Date of Service June 02, 2022 Assessment & Plan (1) Left ureteral stone: (2) Shock circulatory: (3) Depression: (4) Fibromyalgia: (5) Asthma: (6) Gastro-esophageal reflux disease without esophagitis: Plan Reason Critically Ill: 52-year-old female past medical history of nephr olithiasis presented to the hospital with complaints of abdominal pain nausea and vomiting. Was found to have left-sided hydronephrosis. Patient went for cystoscopy for stent placement, patient was hypotensive postprocedure with fever. She was admitted to the ICU for further management and requirement for vasopressors if need be Neuro - [facility] ICU: Negative --Depression/anxiety On divalproex and duloxetine at home --History of migraine Cardiac - -- S/p shock Likely septic from UTI Responded to fluids --History of hypertension Hold blood pressure medication Respiratory - -- Asthma On Symbicort at home Recently had bronchitis for which she got prednisone as an outpatient and antibiotic Continue with Breo while in the hospital GI - --Transaminitis --> improving Likely from hypotensive episode Continue to monitor -- GERD Continue with Pepcid RENAL/LYTES - Monitor BUNs/creatinine Avoid nephrotoxic medication - --Nephrolithiasis S/p cystoscopy 06/01/2022 Continue with ureteral stent Urology on board ENDO - Continue with ICU hypoglycemia protocol HEME - -- Thrombocytopenia Likely secondary to sepsis Continue to monitor Monitor H&H ID - -- Left-sided hydronephrosis with nephrolithiasis S/p cystoscopy 06/01/2022 Urine culture growing gram-negative bacilli, follow-up sensitivity Procalcitonin 11.29 Covid-19 NAAT negative --Prophylaxis VTE: IPC GI: Pepcid Lines: Peripheral Diet: Advance diet as tolerated Plan: In/out: +3.9 L, urine output 3275 Continue with Zosyn to cover for gram-negative's Transaminitis is improving Tylenol for headache Resume gabapentin, divalproex as well as duloxetine. Start Breo while in the hospital for underlying asthma Continue with morphine for severe pain. Advise diet. Patient hemodynamically stable to be downgraded to medical floor Please note the above document was generated using voice recognition software. It may contain grammatical, syntax or spelling errors.Any formal questions or concerns about the content, text or information contained within the body of this dictation should be directly addressed to the provider for clarification. Admission and Anticipated Discharge Date Admission Date: June 01, 2022 Subjective Patient seen and examined at bedside. No acute distress, no delusions overnight. Overall patient feels much better since coming to the hospital. Does complain of headache. She has history of migraine Denies any nausea or vomiting Able to tolerate diet. Has been afebrile since coming to the ICU Review of Systems Review of Systems: All systems reviewed & are unremarkable except as noted in Subjective Physical Exam Physical Exam: Constitutional: No acute distress HEENT: EOMI, PERRLA Respiratory system: Good air entry bilaterally, no wheeze, no rhonchi, no crackles CVS: S1-S2 positive, no murmurs or gallops Abdomen: Soft, nondistended, positive bowel sounds x4, no abdominal pain Extremities: +2 pulses bilaterally radialis/ dorsalis pedis, no cyanosis, no edema Neuro: Awake alert oriented x3 Psych: Normal mood and affect G/U: Positive Crowell Skin: no rashes, warm and dry Lymphatic: no cervical or axillary lymphadenopathy Results & Data Results & Data ([facility]) Vital Signs (Past 12 Hours) Vital Signs Temp Pulse Resp BP Pulse Ox O2 Del Method 06/02/22 06:00 84 22 114/55 L 92 Room Air 06/02/22 05:10 84 19 112/59 L 96 Room Air 06/02/22 04:00 84 16 94 06/02/22 03:00 87 16 100/68 93 Room Air 06/02/22 02:00 82 14 99/62 L 93 Room Air 06/02/22 01:04 90 17 94/58 L 94 Room Air 06/02/22 01:03 94 H 15 86/52 L 92 06/02/22 00:00 36.8 C 85 16 97/54 L 94 06/02/22 00:00 90 06/01/22 23:00 36.8 C 93 H 22 99/65 L 94 Room Air 06/01/22 22:00 104 H 17 109/64 93 06/01/22 21:00 97 H 21 107/62 96 Room Air Laboratory Results 06/02/22 04:59 06/02/22 04:59 Coding Level of Care Code 00468 Subseq Hosp Care Lvl 3 Diagnoses Left ureteral stone N20.1 Shock circulatory R57.9 Depression F32.9 Fibromyalgia M79.7 Asthma J45.909 Gastro-esophageal reflux disease without esophagitis K21.9
[2022-06-02] MEDS: TAMSULOSIN HCL 0.4 MG CAP PO SCH (08:35)
[2022-06-02] MEDS: DULoxetine HCL 60 MG CAP PO SCH (08:35)
[2022-06-02] MEDS: FAMOTIDINE 40 MG TABLET PO SCH (08:36)
[2022-06-02] MEDS: FLUTICASONE/VILANTEROL 100/25MCG 14 PUFFS/INHALER INH SCH (08:36)
[2022-06-02] MEDS: GABAPENTIN 300 MG CAP PO SCH ×3 (08:38→21:10)
--- NOTE | 2022-06-02 08:44 | Progress Note ---
Date of Service June 02, 2022 Assessment & Plan (1) Shock circulatory: Plan: This is a pleasant 52 y/o woman with a PMH of asthma, GERD, kidney stones, and recent bronchitis. S/P cystoscopy and uretal stent insertion 06/01. On recovery from the procedure she was found to be febrile, hypotensive and met SIRS criteria. Currently, 06/02 she is afebrile, not hypotensive and in less pain and mild nausea. Sepsis secondary to UTI and nephrolithiasis and S/P uretal stent insertion- Resolved Continue Abx pending blood and urine cultures: Piperacillin/Tazobactam Continue acetaminophen Continue LR @ 125mL/hr Continue tamsulosin Continue ondansetron HCL PRN Remove Crowell catheter Advance diet as tolerated Transaminitis Currently downtrending, repeat BMP 06/03 Left-sided nephrolithiasis with concern for infection As per Urology, scheduled for surgery 06/01 for uretal stent insertion Urine cultures pending, no blood cultures drawn on admission Monitor for any worsening signs of infection Constipation Docusate Sodium 100mg PO BID scheduled Asthma: continue home inhaler regimen MDD: continue home regimen GERD: continue home regimen HLD: continue home statin Lumbosacral radiculopathy: continue home gabapentin Insomnia: continue home trazodone Migraine: continue home keppra FEN: Advance diet as tolerated, continue LR @ 125mL/hr Code status: full code DVT ppx: SCD knee Consults: urology PT/OT: not indicated Dispo: med/surg Admission and Anticipated Discharge Date Admission Date: June 01, 2022 Supervising Physician Co-Signing Physician Notes I saw and examined patient. I have reviewed and agree with the assessment/plan as documented by Dr. Sloan. Patient is improving a lot today and is hemodynamically stable. She is benefiting from the IV Zosyn day we will continue this into her urine culture susceptibilities come back in which time we can transition her to an updated antibiotic regimen that she can continue even in the outpatient setting. We will transition her to a regular diet gradually throughout the day as tolerated and when she is on a full diet without any difficulty and as long as she has no nausea/vomiting within the IV fluids can be discontinued. However, given that she was septic yesterday I would recommend continuing IV fluids today. Subjective This is a pleasant 52 y/o woman with a PMH of asthma, GERD, kidney stones, and recent bronchitis (abx course she recently completed). S/P cystoscopy and uretal stent insertion 06/01. On recovery from the procedure she was found to be febrile, hypotensive and met SIRS criteria. Currently, 06/02 she is in less pain with mild nausea. She has a headache and photophobia. She has not had a bowel movement since yesterday, and would like to have one before being discharged (hx of constipation after past procedures). She has no fever or chills, no chest pain, palpitations, dyspnea, diaphoresis or LE swelling. Review of Systems Constitutional: no fever, no chills and no sweats Eyes: no vision changes Respiratory: no cough and no dyspnea Cardiovascular: no chest pain, no dyspnea at rest, no edema and no calf pain Additional Comments: no palpitations no diaphoresis Gastrointestinal: mild abdominal pain. no nausea and vomiting. (catheter still in place) Genitourinary: no hematuria, or dysuria Musculoskeletal: + back pain (Left flank) edema in phalanges bilaterally (pt reports his is baseline for her) Physical Exam Constitutional: Well appearing, sitting up and interactive Respiratory: normal respiratory effort (clear to ausculation bilaterally ); no respiratory distress and no labored breathing Cardiovascular: Rate/Rhythm: regular rate (no murmurs rubs or gallops appreciated) and regular rhythm Extremities: normal capillary refill and + edema (mild, nonpitting); no calf tenderness Gastrointestinal (Abdomen): normal bowel sounds, soft, nontender, no hepatosplenomegaly Inspection/Auscultation: abdomen normal to inspection and normal bowel sounds Skin: no rashes Psychiatric: Orientation: oriented x 3 Results & Data ([facility]) Vital Signs (Past 12 Hours) Vital Signs Temp Pulse Resp BP Pulse Ox O2 Del Method 06/02/22 06:00 84 22 114/55 L 92 Room Air 06/02/22 05:10 84 19 112/59 L 96 Room Air 06/02/22 04:00 84 16 94 06/02/22 03:00 87 16 100/68 93 Room Air 06/02/22 02:00 82 14 99/62 L 93 Room Air 06/02/22 01:04 90 17 94/58 L 94 Room Air 06/02/22 01:03 94 H 15 86/52 L 92 06/02/22 00:00 36.8 C 85 16 97/54 L 94 06/02/22 00:00 90 06/01/22 23:00 36.8 C 93 H 22 99/65 L 94 Room Air 06/01/22 22:00 104 H 17 109/64 93 06/01/22 21:00 97 H 21 107/62 96 Room Air Resident Activity Tracking Resident Involvement: Resident Care Provided Care Provided: Adult [facility]
[2022-06-02] MEDS ORDERED: LACTATED RINGER'S 1,000 ML IV SCH (09:00)
--- NOTE | 2022-06-02 10:18 | Urology Progress Note ---
Date of Service June 02, 2022 Assessment & Plan (1) UTI (urinary tract infection): (2) Left ureteral stone: Plan 52-year-old female status post cystoscopy and left ureteral stent placement for a septic stone. Subjectively reports feeling better today Not surprised that leukocytosis slightly increased. Continue to trend. Continue broad-spectrum antibiotics. Follow-up cultures and tailor accordingly. Would recommend 14 days of total antibiotics Okay to remove Crowell catheter today Urology to follow peripherally. We will schedule outpatient follow-up to discuss stone treatment. Admission and Anticipated Discharge Date Admission Date: June 01, 2022 Subjective 52-year-old female who is status post cystoscopy and left ureteral stent amaris cement for a septic stone yesterday. She is upgraded the ICU postoperatively due to fevers, hypotension and tachycardia. Subjectively reports feeling better today. Blood pressures have still been s lightly soft but otherwise tachycardia has resolved and no further fevers. Labs showed a slight increase of leukocytosis from 12-15, creatinine stable at 1.12, and urine cultures growing gram-negative bacilli. Blood cultures are pending. Review of Systems Review of Systems: 14 point review of systems negative outside of what is listed above in HPI Physical Exam Physical Exam: General: Alert and oriented, no acute distress HEENT: Normocephalic, mucous membranes moist Pulmonary: Nonlabored respirations Abdomen: Nondistended : Crowell catheter draining clear urine Extremities: Moves all 4 spontaneously Neuro: No gross deficits Skin: Warm, dry, no rashes noted Results & Data ([facility]) Vital Signs (Past 12 Hours) Vital Signs Temp Pulse Resp BP Pulse Ox O2 Del Method 06/02/22 06:00 84 22 114/55 L 92 Room Air 06/02/22 05:10 84 19 112/59 L 96 Room Air 06/02/22 04:00 84 16 94 06/02/22 03:00 87 16 100/68 93 Room Air 06/02/22 02:00 82 14 99/62 L 93 Room Air 06/02/22 01:04 90 17 94/58 L 94 Room Air 06/02/22 01:03 94 H 15 86/52 L 92 06/02/22 00:00 36.8 C 85 16 97/54 L 94 06/02/22 00:00 90 06/01/22 23:00 36.8 C 93 H 22 99/65 L 94 Room Air PG Care Time/CCT Total # of Minutes Spent Total Time Spent with Patient: Total time spent is greater than 50% in coordination of care (as documented) at patient's floor/unit and/or counseling patient: Coding Level of Care Code 29430 Subseq Hosp Care Lvl 2 Diagnoses UTI (urinary tract infection) N39.0 Left ureteral stone N20.1
[2022-06-02] MEDS: ACETAMINOPHEN 500 MG TAB PO SCH ×2 (11:02→17:34)
[2022-06-02] MEDS: DOCUSATE SODIUM 100 MG CAP PO SCH ×2 (11:03→21:10)
[2022-06-02] MEDS: LACTATED RINGER'S 1,000 ML IV SCH ×2 (15:32→21:24)
[2022-06-02] MEDS: traMADol HCL 50 MG TABLET PO PRN (18:17)
[2022-06-02] MEDS ORDERED: DIVALPROEX EXTENDED RELEASE 250 MG TABCR PO SCH (21:00)
[2022-06-03] MEDS: ACETAMINOPHEN 500 MG TAB PO SCH ×2 (01:39→10:08)
[2022-06-03] MEDS: PIPERACILLIN/TAZOBACTAM 3.375 GM in DEXTROSE 5% 100 ML IV SCH (06:06)
[2022-06-03] MEDS: traMADol HCL 50 MG TABLET PO PRN (06:47)
[2022-06-03] MEDS: DOCUSATE SODIUM 100 MG CAP PO SCH (09:19)
[2022-06-03] MEDS: GABAPENTIN 300 MG CAP PO SCH ×2 (09:19→13:45)
[2022-06-03] MEDS: FAMOTIDINE 40 MG TABLET PO SCH (09:19)
[2022-06-03] MEDS: TAMSULOSIN HCL 0.4 MG CAP PO SCH (09:19)
[2022-06-03] MEDS: DULoxetine HCL 60 MG CAP PO SCH (09:19)
[2022-06-03] MEDS: FLUTICASONE/VILANTEROL 100/25MCG 14 PUFFS/INHALER INH SCH (09:20)
[2022-06-03 10:43] LABS: Albumin Globulin Ratio 1.1 (0.9-2); Albumin Level 3.1 gm/dl (3.4-5.0); BUN Creatinine Ratio 18.9 (10-20); Bilirubin,Total 0.4 mg/dl (0.2-1.0); Calcium 8.8 mg/dl (8.5-10.1); Creatinine Clr Calc Pharmacy 69.7 ml/min; Est GFR (Non-African American) 72.5 ml/min; Globulin 2.8 gm/dl (2.5-4.0); Hematocrit (blood only) 32.9 % (34.1-44.9); Hemoglobin 11.2 g/dl (12.0-16.0); Mean Corpuscular Hemoglobin 28.9 pg (25.0-34.0); Mean Platelet Volume 10.5 fL (9.4-12.3); Platelet Count 97 K/uL (130-400); Potassium 3.7 mmol/L (3.5-5.1); RDW Coefficient of Variation 14.2 % (11.5-14.5); RDW Standard Deviation 43.9 fL (36.4-46.3); Red Blood Count 3.87 M/uL (3.93-5.22); Total Protein 5.9 gm/dl (6.0-8.3); White Blood Count 9.84 K/ul (4.8-10.8)
[2022-06-03 10:45] LABS: Basophils # (auto) 0.02 K/uL (0-0.2); Basophils % (auto) 0.2 %; Eosinophils # (auto) 0.05 K/uL (0-0.50); Eosinophils % (auto) 0.5 %; Immature Granulocytes # (auto) 0.22 K/uL (0.00-0.02); Immature Granulocytes % (auto) 2.2 %; Lymphocytes # (auto) 0.78 K/uL (1.2-3.4); Lymphocytes % (auto) 7.9 %; Monocytes % (auto) 5.1 %; Neutrophils # (auto) 8.27 K/uL (1.4-6.5); Neutrophils % (auto) 84.1 %
--- NOTE | 2022-06-03 13:09 | Discharge Summary ---
Date of Service June 03, 2022 Admission HPI Per Admitting Provider Camilla Narayanan is a 52yo female with history of asthma, HTN, GERD, FM and asthma presenting with acute onset left flank pain. Patient is recovering from bronchitis - recently completed a 5 day course of antibiotic and steroid. She was overall feeling well until this evening at 20:45 when she developed acute left flank pain as well as nausea. Pain is similar to prior episodes of renal stones. Patient has had renal stones in the past - she has been able to pass some but has also had lithotripsy and stent placement. No additional complaints at this time. In the ER she is afebrile, HD stable, in mild distress secondary to pain Workup with visible stone in left ureter - formal CT read pending UA is suggestive of infection ER Course: Tylenol, Ceftriaxione, Toradol, Morphine, Zofran, NSS Admission Exam Per Admitting Provider General: patient resting comfortably, NAD, non-toxic in appearance, AA&O x 4 Skin: warm, dry, intact, no rashes or lesions HEENT: NC/AT, PERRL, EOMI, anicteric sclera, conjunctiva without injection, external ear normal to inspection and nontender, nares patent, moist mucus membranes, dentition intact, no oropharyngeal lesions, neck supple, trachea midline, no LAD, no thyromegaly, no JVD Heart: +S1/S2, regular, no m/r/g Lungs: equal air entry bilaterally, no rales/rhonchi/wheezes Abd: +BS, soft, ND, tenderness in the left flank and LLQ with voluntary guarding, no masses/organomegaly/ascites Ext: warm, 2+ pulses in UE/LE bilaterally, no clubbing/cyanosis or edema Neuro: nonfocal, patient AA&O x 4, speech intact, no facial droop, moving all extremities on command with equal strength 5/5 Principal Diagnosis Sepsis in the setting of complicated UTI with kidney stone Discharge Exam well appearing female in NAD CTAB no increased work of breathing RRR no murmurs, rubs, gallops abdomen mildly tender diffusely A&O, normal mood and affect Discharge Data Allergies Allergy/AdvReac Type Severity Reaction Status Date / Time meloxicam Allergy Intermediate GI SYMPTOMS Verified 01/07/22 14:07 Consultations 06/01/22 04:50 ED Decision to Admit Stat 06/01/22 07:05 Consult Urology Routine 06/01/22 16:00 Consult Software Engineer [employer] Routine Procedures Performed Operation Date: 06/01/22 08:40 Actual Procedures p Cystoscopy, Left Retrograde Pyelogram, Left Stent Insertion(Left) - Mohinder Dubon MD Ordered Studies Retrograde Pyelogram 06/01/22 00:00 FL retrograde includes kub CLINICAL HISTORY: Left ureteral stent placement. COMPARISON STUDY: Abdomen and pelvis CT 06/01/2022. FLUOROSCOPY TIME: 6 seconds. FINDINGS: 2 fluoroscopic spot images of the abdomen demonstrate retrograde opacification of the left renal collecting system followed by placement of a left ureteral stent. Only the proximal portion of the stent is identified and appears in good position. IMPRESSION: Fluoroscopic assistance provided for left ureteral stent placement ACT 112: Negative or not required by law. Electronically signed by: Devin Mcginnis M.D. 06/01/2022 3:01 PM Abdomen/Pelvis CT 06/01/22 03:[address] WITHOUT CONTRAST CT DOSE: 411.85 mGy.cm HISTORY: Acute left-sided flank pain left flank pain TECHNIQUE: Multiaxial CT images of the abdomen and pelvis were performed without contrast. A dose lowering technique was utilized adhering to the principles of ALARA. COMPARISON STUDY: CT abdomen and pelvis 06/22/2018 FINDINGS: Clear lung bases. No pneumatosis or pneumoperitoneum. The imaged inferior cardiac chambers are unremarkable. The unenhanced spleen, pancreas, adrenal glands, gallbladder and liver appear unremarkable. There are a few punctate nonobstructing calculi present within the right kidney. Mild to moderate left-sided hydroureteronephrosis secondary to an obstructing 5 x 4 x 6 mm calculus within the left ureter at the level of L2-L3. Reactive perinephric and periureteral inflammatory stranding. Punctate nonobstructing calculus of the inferior pole left kidney. There are a few scattered cysts again noted within the left kidney, 2 of which demonstrate layering milk of calcium. Cysts measure up to approximately 2 cm. Partial distention of the urinary bladder. Unremarkable uterus. No abdominal aortic aneurysm or lymphadenopathy. There is no bowel obstruction or bowel wall thickening. Mild colonic fecal retention. No CT evidence of acute appendicitis. No ascites or mesenteric inflammation. No acute fracture identified. IMPRESSION: 1. Mild to moderate left-sided hydroureteronephrosis secondary to an obstructing 6 mm calculus of the left ureter at the level of L2-L3. 2. Nonobstructing bilateral nephrolithiasis. 3. No bowel obstruction or bowel wall thickening. ACT 112: Negative or not required by law. The above report was generated using voice recognition software. It may contain grammatical, syntax or spelling errors. Electronically signed by: Osmar Tena M.D. 06/01/2022 7:47 AM Chest X-Ray 06/01/22 16:10 XR chest 1V portable CLINICAL HISTORY: f/u COMPARISON STUDY: Chest radiograph June 26, 2021. FINDINGS: There is no pneumothorax. No definite pleural effusion. Left basilar opacity is noted. There is suspected mild right basilar opacity as well. There is pulmonary vascular congestion without evidence for overt pulmonary edema. Cardiomediastinal silhouette is within normal limits. IMPRESSION: 1. Bibasilar opacities which favor atelectasis. 2. Pulmonary vascular congestion without overt pulmonary edema. ACT 112: Negative or not required by law. Electronically signed by: Reymundo Folye M.D. 06/01/2022 5:39 PM 06/03/22 06/03/22 Range/Units 10:10 10:10 WBC 9.84 (4.8-10.8) K/ul RBC 3.87 L (3.93-5.22) M/uL Hgb 11.2 L (12.0-16.0) g/dl Hct 32.9 L (34.1-44.9) % MCV 85.0 (80.0-100.0) fL MCH 28.9 (25.0-34.0) pg MCHC 34.0 (32.0-36.0) g/dL RDW Std Deviation 43.9 (36.4-46.3) fL RDW Coeff of Stephan 14.2 (11.5-14.5) % Plt Count 97 L (130-400) K/uL MPV 10.5 (9.4-12.3) fL Immature Gran % (Auto) 2.2 % Neut % (Auto) 84.1 % Lymph % (Auto) 7.9 % [place] % (Auto) 5.1 % Eos % (Auto) 0.5 % Baso % (Auto) 0.2 % Neut # (Auto) 8.27 H (1.4-6.5) K/uL Lymph # (Auto) 0.78 L (1.2-3.4) K/uL [place] # (Auto) 0.50 (0.24-0.82) K/uL Eos # (Auto) 0.05 (0-0.50) K/uL Baso # (Auto) 0.02 (0-0.2) K/uL Immature Gran # (Auto) 0.22 H (0.00-0.02) K/uL Sodium 139 (136-145) mmol/L Potassium 3.7 (3.5-5.1) mmol/L Chloride 109 H (98-107) mmol/L Carbon Dioxide 24 (21-32) mmol/L Anion Gap 6 (3-11) BUN 17 (6-23) mg/dl Creatinine 0.90 (0.6-1.2) mg/dl Est Cr Clr Drug Dosing 69.7 ml/min Est GFR ( Amer) 84.0 ml/min Est GFR (Non-Af Amer) 72.5 ml/min BUN/Creatinine Ratio 18.9 (10-20) Glucose 121 H (70-99(Fasting)) mg/dl Calcium 8.8 (8.5-10.1) mg/dl Total Bilirubin 0.4 (0.2-1.0) mg/dl AST 24 (13-39) U/L ALT 60 H (7-52) U/L Alkaline Phosphatase 64 (34-104) U/L Total Protein 5.9 L (6.0-8.3) gm/dl Albumin 3.1 L (3.4-5.0) gm/dl Globulin 2.8 (2.5-4.0) gm/dl Albumin/Globulin Ratio 1.1 (0.9-2) 06/01/22 FL retrograde includes kub Routine 06/01/22 03:31 CT abd pelvis wo con Urgent Hospital Course (1) Nephrolithiasis: (2) Left ureteral stone: (3) UTI (urinary tract infection): (4) Shock circulatory: (5) Migraine: Plan This is a pleasant 52 y/o woman with a PMH of asthma, GERD, kidney stones, and recent bronchitis who was admitted for left flank pain who was found to have a septic kidney stone with subsequent UTI now s/p cystoscopy and uretal stent insertion 06/01. Following the procedure she became febrile and hypotensive and was treated with pressors in the ICU. She was then downgraded 06/02 and continued to improve clinically and is now medically stable for discharge. Sepsis secondary to UTI and nephrolithiasis and S/P uretal stent insertion - improved Symptoms have improved since removing the inciting stone with cystoscopy and stent placement 06/01 and treating the UTI with antibiotics. Urine cultures grew pansensitive Klebsiella. As this was a complicated UTI, patient was treated with Zosyn inpatient and will be transitioned to Cipro 500 mg BID prior to discharge. Patient was tolerating PO at the time of discharge and her pain was adequately controlled. Transaminitis Continues to downtrend. Could repeat LFTs in 3 months to eval for resolution of transaminitis. Constipation Patient likely has opiate induced constipation. Recommended docusate/miralax OTC to help with constipation. Asthma: continue home inhaler regimen MDD: continue home regimen GERD: continue home regimen HLD: continue home statin Lumbosacralradiculopathy: continue home gabapentin Insomnia: continue home trazodone Migraine: continue home keppra. THere may be an MSK component to her migraines. Recommend outpatient PT for stretching. FEN: heart healthy Code status: full code DVT ppx: SCD knee Consults: urology PT/OT: not indicated Dispo: med/surg --> home Total Time Total Time Spent Total Time Spent (In Minutes): See attending attestation Discharge Plan Discharge Items Patient Disposition: Home - Self-Care Reason For Visit: RENAL STONE Discharge Diagnosis: Sepsis secondary to complicated UTI in the setting of nephrolithiasis Activity: Resume your previous activity Non-emergency contact: Primary Care Provider and Urologist Call non-emergency contact if: your symptoms worsen and you have a fever Follow-up/Referrals: Jacey Rivers PA-C [Primary Care Provider] - 06/13/22 3:00 pm Diet: Heart Healthy Addtl Attending Provider Instructions: You were admitted to the hospital for a urinary tract infection and kidney stone. You were treated with IV fluids and antibiotics. Our urology colleagues performed a procedure to remove the stone. After the procedure, we needed to support your blood pressure with IV fluids and IV medicine. You have improved. We are sending you home with antibiotics. Take the entire course of antibiotics. A discharge summary will be sent to your primary care physician to ensure continuity of care. Please bring this discharge summary with you to your next office appointment so that your provider can review it at that time. Follow-up appointments: Make a follow-up appointment with your PCP within the next week. It is very important that you follow up with them shortly after discharge from the hospital. Keep all your follow-up appointments as already scheduled. If you cannot make an appointment, notify your provider. Medications: We did not make any changes to your medication regimen during this hospital stay. Take your medications as instructed; do not skip a dose of your medicines. Make sure all of your doctors know every medicine you are taking (including nzqk-eet-[id number] medicines, vitamins, and supplements). Call your primary care provider before taking any new medicines (including cvye-wng-frbbtlh medicines, vitamins, and supplements), because some of these may interact with your current medications, or may make your symptoms worse. Tell your primary care provider if you cannot afford your medications. CONTACT YOUR PRIMARY CARE PROVIDER if you experience any of the following: Fever Worsening pain or new pain Difficulty following your treatment plan, or difficulty taking medications CALL 911 OR GO TO THE EMERGENCY DEPARTMENT if you experience any of the following: Sudden, severe abdominal pain or nausea/vomiting Severe chest pain, or chest pain that radiates (moves) to your jaw or arm Sudden, severe shortness of breath or difficulty breathing Thank you for allowing us to participate in your care. Pending Studies at Discharge: No Stand-Alone Forms: My [facility] Medications and DC Order Prescriptions: New ciprofloxacin HCl 500 mg tablet 500 mg PO BID Qty: 26 0RF Continued lorazepam 0.5 mg tablet 0.5 mg PO Q6 PRN (Reason: Anxiety) Qty: 30 0RF gabapentin 600 mg tablet 600 mg PO TID Qty: 270 3RF albuterol sulfate [Ventolin HFA] 90 mcg/actuation HFA aerosol inhaler See Rx Instructions .ROUTE .COMPLEX Qty: 18 5RF Dose Instruction: INHALE 2 PUFFS BY MOUTH EVERY FOUR HOURS NEEDED FOR ASTHMA Rx Instructions: INHALE 2 PUFFS BY MOUTH EVERY FOUR HOURS NEEDED FOR ASTHMA duloxetine [Cymbalta] 60 mg capsule,delayed release(DR/EC) 60 mg PO DAILY Qty: 90 3RF divalproex 250 mg tablet,delayed release (DR/EC) 250 mg PO HS 90 Days Qty: 90 1RF Emgality Pen 120 mg/mL pen injector See Rx Instructions .ROUTE .COMPLEX Qty: 1 11RF Dose Instruction: INJECT 120MG SUBCUTANEOUSLY MONTHLY Rx Instructions: INJECT 120MG SUBCUTANEOUSLY MONTHLY atorvastatin 20 mg tablet 20 mg PO DAILY Qty: 90 3RF omeprazole 20 mg capsule,delayed release(DR/EC) 20 mg PO DAILY Qty: 90 3RF sertraline 100 mg tablet 100 mg PO DAILY trazodone 50 mg tablet 50 mg PO HS prazosin 1 mg capsule 1 mg PO DAILY sumatriptan succinate 100 mg tablet 100 mg PO Q2H PRN (Reason: migraine headache) Qty: 27 1RF Rx Instructions: do not exceed 2 doses per 24 hrs budesonide-formoterol [Symbicort] 80-4.5 mcg/actuation HFA aerosol inhaler 2 puff inhalation BID Rx Instructions: INHALE 2 PUFFS BY MOUTH TWICE A DAY Discharge Orders: Discharge Order (Routine); Ordered 06/03/22 Ordered By: Joan aWng/Other Patient Handouts: Understanding Kidney Stones, Kidney Stones Surg, Preventing Kidney Stones Admission Data Admit Date/Time: 06/01/22 05:14 Attending Provider: Carlito Benavides Admit Provider: Freya Emmanuel Primary Care Provider: Jacey Rivers Other Providers: Freya Emmanuel ; Pepe Carrion ; Ya Concepcion Other Interventions: Discharge Summary Assessment (RN) Last Done: 06/03/22 13:07 Supervising Physician Co-Signing Physician Notes Attending attestation Pt seen and examined in concert with Dr. Abarca. In agreement with the documented findings as noted in the resident documentation with any exceptions or additions as noted here. Ongoing chronic headache mitigated by APAP described as bilateral occiput and frontal throbbing headache with significant tension on palpation and raising of shoudlers at rest concerning for tension component to recurrent LUCAS. Sepsis 2/2 complex UTI in the setting of nephrolithaisis s/p ureteral stent placement - complete 14 day course of treatment with ciprofloxacin with follow up with urology and PCP. Chronic migraine headache - likely with tension component. Encourage PT evaluation in the outpatient setting for mitigation and continue keppra for obvious photophobic component. Constipation - improved on docusate/miralax, continue same. Else see resident documentation as noted. Total attending physician time spent with this patient's care on the day of discharge: 45 minutes. Resident Activity Tracking Resident Involvement: Resident Care Provided Care Provided: Adult Hospital Medicine
[2022-06-04 15:24] LABS: Uric Acid, Random Urine 34 mg/dL
== END 2022-06-03 14:08 | disposition home or self-care (01) | DRG 853 ==
LOC: ED 03:21 → EDINP 05:14 → SUATTDRO 05:14 → PACUINP 07:06 → 1E 14:19 → PACUINP 14:19 → 1E 15:08 → 2N 06-02 13:54

== ENCOUNTER 2023-11-13 15:38 | Inpatient (IN) ==
[2023-11-13 16:21] LABS: Basophils # (auto) 0.02 K/uL (0.00-0.20); Basophils % (auto) 0.5 %; Eosinophils # (auto) 0.06 K/uL (0.00-0.50); Eosinophils % (auto) 1.4 %; Hematocrit (blood only) 40.5 % (37.0-47.0); Hemoglobin 13.6 g/dl (12.0-16.0); Immature Granulocytes # (auto) 0.01 K/uL (0.01-0.20); Immature Granulocytes % (auto) 0.2 %; Lymphocytes # (auto) 1.59 K/uL (1.20-3.40); Lymphocytes % (auto) 36.9 %; Mean Corpuscular Hemoglobin 29.1 pg (25.0-34.0); Mean Corpuscular Hgb Conc 33.6 g/dL (32.0-36.0); Mean Corpuscular Volume 86.7 fL (80.0-100.0); Monocytes # (auto) 0.38 K/uL (0.11-0.59); Monocytes % (auto) 8.8 %; Neutrophils # (auto) 2.25 K/uL (1.40-6.50); Neutrophils % (auto) 52.2 %; Platelet Count 219 K/uL (130-400); RDW Coefficient of Variation 12.6 % (11.5-14.5); RDW Standard Deviation 39.8 fL (36.4-46.3); Red Blood Count 4.67 M/uL (4.20-5.40); White Blood Count 4.31 K/ul (4.8-10.8)
[2023-11-13 16:39] LABS: Albumin Level 4.4 gm/dl (3.4-5.0); BUN Creatinine Ratio 17.2 (10-20); Bilirubin,Total 0.5 mg/dl (0.2-1.0); Calcium 9.1 mg/dl (8.6-10.3); Creatinine Clr Calc Pharmacy 61.5 ml/min; Est GFR (African American) 80.2 ml/min; Est GFR (Non-African American) 69.2 ml/min; Globulin 2.2 gm/dl (2.5-4.0); Potassium 3.7 mmol/L (3.5-5.1); Total Protein 6.6 gm/dl (6.0-8.3)
[2023-11-13 16:54] LABS: Thyroid Stimulating Hormone 2.076 uIu/ml (0.300-4.500)
[2023-11-13 17:04] LABS: Acetaminophen 5 ug/ml (10-30); Salicylate < 3.0 mg/dl (3.0-30)
--- NOTE | 2023-11-13 17:25 | Electrocardiogram Report ---
Test Reason : Blood Pressure : / mmHG Vent. Rate : 066 BPM Atrial Rate : 066 BPM P-R Int : 152 ms QRS Dur : 086 ms QT Int : 412 ms P-R-T Axes : 052 043 034 degrees QTc Int : 431 ms Normal sinus rhythm Normal ECG When compared with ECG of 28-JUN-2022 09:37, No significant change was found Confirmed by Pepe Rojas ([id number]) on 11/13/2023 5:25:36 PM Referred By: Confirmed By:Quintin Rojas
--- NOTE | 2023-11-13 19:08 | Emergency Department Note ---
History of Present Illness General Chief complaint: Overdose (Intentional) Time Seen by Provider: 11/13/23 15:44 History of Present Illness Provider complaint: Overdose mental health evaluation Maximum Pain Intensity: 8 53-year-old female presents emergency department for overdose and mental health evaluation. Patient reports that she has been having arguments with her son and her family. She states she "wants to feel numb" to do this she took an unknown amount of her prescription Ativan 0.5 mg tablets between yesterday and today. She denies any chance of . No drugs or alcohol. Home Medications Medication Instructions Recorded Confirmed Type prazosin 1 mg capsule (Minipress) 1 mg PO HS 03/28/19 11/13/23 History lorazepam 0.5 mg tablet 0.5 mg PO Q6 PRN Anxiety #30 tabs 10/19/20 11/13/23 Rx Ventolin HFA 90 mcg/actuation See Rx Instructions .Route 04/21/21 11/13/23 Rx aerosol inhaler (albuterol sulfate) .COMPLEX #18 Inhalers sertraline 100 mg tablet 100 mg PO HS 01/07/22 11/13/23 History trazodone 50 mg tablet 50 mg PO HS 01/07/22 11/13/23 History ketorolac 10 mg tablet 10 mg PO Q8H PRN pain 5 days #15 06/16/22 11/13/23 Rx tabs galcanezumab-gnlm 120 mg/mL See Rx Instructions .Route 03/20/23 11/13/23 Rx subcutaneous pen injector .COMPLEX #1 mL (Emgality Pen) atorvastatin 20 mg tablet 20 mg PO HS 90 days #90 tabs 04/13/23 11/13/23 Rx omeprazole 20 mg capsule,delayed 20 mg PO QAM 90 days #90 caps 04/13/23 11/13/23 Rx release gabapentin 600 mg tablet 600 mg PO TID 90 days #270 tabs 06/01/23 11/13/23 Rx Wheelchair (Powered) (Power #1 ea 08/22/23 10/12/23 Rx Wheelchair) amlodipine 5 mg tablet 5 mg PO DAILY #90 tabs 08/31/23 11/13/23 Rx duloxetine 60 mg capsule,delayed 60 mg PO QAM 90 days #90 caps 10/12/23 11/13/23 Rx release (Cymbalta) budesonide-formoterol HFA 80 2 inh inhalation BID 90 days #10.2 11/01/23 11/13/23 Rx mcg-4.5 mcg/actuation aerosol grams inhaler (Breyna) Allergies Allergy/AdvReac Type Severity Reaction Status Date / Time COVID-19 (SARS-CoV-2) Allergy Severe Chest Pain Verified 08/04/23 13:07 vaccine, mira meloxicam Allergy Intermediate GI SYMPTOMS Verified 08/04/23 13:07 Past Med/Surg History Medical History Bilateral nephrolithiasis History of COVID-19 04/2021 Hip bursitis R/L Osteoarthritis Degenerative disc disease Chronic back pain + hip Anxiety Post traumatic stress disorder Shock circulatory Left flank pain Asthma Depression Essential hypertension Per records, pt denies Fibromyalgia Gastro-esophageal reflux disease without esophagitis Hyperlipidemia Migraine Kidney stones Surgical History H/O unilateral salpingectomy (d/t ectopic ) S/P cystoscopy with ureteral stent placement 05/2022 History of lithotripsy renal History of tubal ligation Family History Mother Diabetes COPD (chronic obstructive pulmonary disease) Father Aneurysm of abdominal aorta Unknown Cardiac disorder Brother Kidney stones Other Family history non-contributory Heart disease Hypertension No family history of adverse response to anesthesia Denies family history of Ovarian cancer Prostate cancer Breast cancer Lung cancer Colorectal cancer Social History Smoking Status: Never smoker Second Hand Exposure: No; Do You Dip or Chew Tobacco: No; Hx Alcohol Use: No Hx Substance Use: No Preferred Language: Swazi Communication Ability: Effective Bale Coverer Required: No Beliefs That Will Affect Care: None marital status: Single Current Living Situation: Family Current Living Situation Comment: lives with adult son current occupational status: disabled Feels Safe at Home: Yes Childhood Exposure to Second-Hand Smoke: Yes Diet: regular caffeine: Yes Dental Care, Regularly: Yes Physical Activity Frequency: Does not Exercise Physical Activity Frequency Comment: Unable to exercise due to pain Seatbelt Use: always Sunscreen Use: No (Is sensitive to sun, avoids being in the sunlight ) Gender Identity: Female Assistive Devices: Glasses Physical Exam Vital Signs Vital Signs - 24 hr 11/13/23 15:54 11/13/23 16:15 11/13/23 16:45 Temperature 36.7 C Temperature Source Oral Pulse Rate 72 73 70 Pulse Rate from SpO2 Sensor 73 64 Pulse Rhythm Regular Pulse Strength Normal Respiratory Rate 14 17 14 Respiratory Effort / Characteristics Non-Labored Spontaneous Respiratory Depth Normal Respiratory Pattern Regular Blood Pressure 112/68 115/76 122/66 Blood Pressure Mean 82 89 84 Blood Pressure Position Lying Pulse Oximetry 97 94 96 Oxygen Delivery Method Room Air Room Air Room Air Sepsis Recent Fever Within 48 Hours No Sepsis New/Unexplained Change in Mental Status N/A Sepsis Action Taken by Nursing No Action Required 11/13/23 16:58 11/13/23 17:00 11/13/23 17:15 Temperature Temperature Source Pulse Rate 74 69 69 Pulse Rate from SpO2 Sensor 69 69 Pulse Rhythm Pulse Strength Respiratory Rate 14 12 Respiratory Effort / Characteristics Respiratory Depth Respiratory Pattern Blood Pressure 114/64 111/63 Blood Pressure Mean 80 79 Blood Pressure Position Pulse Oximetry 96 93 Oxygen Delivery Method Room Air Room Air Sepsis Recent Fever Within 48 Hours Sepsis New/Unexplained Change in Mental Status Sepsis Action Taken by Nursing 11/13/23 19:00 11/13/23 19:15 11/13/23 19:30 Temperature Temperature Source Pulse Rate 83 72 67 Pulse Rate from SpO2 Sensor Pulse Rhythm Pulse Strength Respiratory Rate 16 20 22 Respiratory Effort / Characteristics Respiratory Depth Respiratory Pattern Blood Pressure 91/46 L 99/54 L 98/53 L Blood Pressure Mean 61 69 68 Blood Pressure Position Pulse Oximetry 95 96 95 Oxygen Delivery Method Sepsis Recent Fever Within 48 Hours Sepsis New/Unexplained Change in Mental Status Sepsis Action Taken by Nursing 11/13/23 19:45 Temperature Temperature Source Pulse Rate 73 Pulse Rate from SpO2 Sensor Pulse Rhythm Pulse Strength Respiratory Rate 14 Respiratory Effort / Characteristics Respiratory Depth Respiratory Pattern Blood Pressure 108/43 L Blood Pressure Mean 64 Blood Pressure Position Pulse Oximetry 97 Oxygen Delivery Method Sepsis Recent Fever Within 48 Hours Sepsis New/Unexplained Change in Mental Status Sepsis Action Taken by Nursing Physical Exam GENERAL: Lethargic. HENT: Exam performed. -Head: Normocephalic and atraumatic. -Right Ear: External ear normal. No mastoid erythema -Left Ear: External ear normal. No mastoid erythema -Mouth/Throat: The oropharynx is clear and moist. No trismus in the jaw. No dental abscesses or uvula swelling. No oropharyngeal exudate or tonsillar abscesses. EYES: Conjunctivae and EOM are normal. Pupils are equal, round, and reactive to light. Right eye exhibits no discharge. Left eye exhibits no discharge. No scleral icterus. NECK: Normal range of motion. Neck supple. No JVD present. No spinous process tenderness present. No rigidity. No tracheal deviation and normal range of motion present. CV: Normal rate, regular rhythm, normal heart sounds and intact distal pulses. There is no peripheral edema. Palpable radial pulses bue. PULM/CHEST: Effort normal and breath sounds normal. No respiratory distress. No stridor. She has no wheezes. She has no rales. ABD: The abdomen is soft. NEURO: Motor and sensation grossly intact. PSYCH: Patient appears depressed. Course Course 154: The patient was evaluated in room A6. A complete history and physical exam was performed Cardiac monitoring: An order was placed for continuous cardiac monitoring. The monitor shows a rate of 70 with sinus rhythm interpreted by me 1700: Patient medically cleared. Awaiting psychiatric evaluation and placement. 2028: Awaiting psychiatric evaluation and placement. Case signed out to Dr. Valentin. Medical Decision Making Laboratory Data Attestation: I reviewed the patient's lab results. 11/13/23 15:53 11/13/23 15:53 Lab Results 11/13/23 Range/Units 15:53 WBC 4.31 L (4.8-10.8) K/ul RBC 4.67 (4.20-5.40) M/uL Hgb 13.6 (12.0-16.0) g/dl Hct 40.5 (37.0-47.0) % MCV 86.7 (80.0-100.0) fL MCH 29.1 (25.0-34.0) pg MCHC 33.6 (32.0-36.0) g/dL RDW Std Deviation 39.8 (36.4-46.3) fL RDW Coeff of Stephan 12.6 (11.5-14.5) % Plt Count 219 (130-400) K/uL MPV 10.0 (9.4-12.4) fL Immature Gran % (Auto) 0.2 % Neut % (Auto) 52.2 % Lymph % (Auto) 36.9 % [place] % (Auto) 8.8 % Eos % (Auto) 1.4 % Baso % (Auto) 0.5 % Neut # (Auto) 2.25 (1.40-6.50) K/uL Lymph # (Auto) 1.59 (1.20-3.40) K/uL [place] # (Auto) 0.38 (0.11-0.59) K/uL Eos # (Auto) 0.06 (0.00-0.50) K/uL Baso # (Auto) 0.02 (0.00-0.20) K/uL Immature Gran # (Auto) 0.01 (0.01-0.20) K/uL Sodium 142 (136-145) mmol/L Potassium 3.7 (3.5-5.1) mmol/L Chloride 111 H (98-107) mmol/L Carbon Dioxide 24 (21-32) mmol/L Anion Gap 7 (3-11) BUN 16 (6-23) mg/dl Creatinine 0.93 (0.6-1.2) mg/dl Est Cr Clr Drug Dosing 61.5 ml/min Est GFR ( Amer) 80.2 ml/min Est GFR (Non-Af Amer) 69.2 ml/min BUN/Creatinine Ratio 17.2 (10-20) Glucose 89 (70-99(Fasting)) mg/dl Calcium 9.1 (8.6-10.3) mg/dl Total Bilirubin 0.5 (0.2-1.0) mg/dl AST 21 (13-39) U/L ALT 18 (7-52) U/L Alkaline Phosphatase 48 (34-104) U/L Total Protein 6.6 (6.0-8.3) gm/dl Albumin 4.4 (3.4-5.0) gm/dl Globulin 2.2 L (2.5-4.0) gm/dl Albumin/Globulin Ratio 2.0 (0.9-2) TSH 2.076 (0.300-4.500) uIu/ml Salicylates < 3.0 L (3.0-30) mg/dl Acetaminophen 5 L (10-30) ug/ml Ethyl Alcohol mg/dL < 10.0 (<10.0) mg/dl SARS-CoV-2, RNA, NAAT NEGATIVE (NEGATIVE) ECG Data Attestation: I personally reviewed and interpreted this ECG as follows: Indication: + toxicologic Rate (beats per minute): 66 Rhythm: + normal sinus ECG Intervals/blocks: + Normal QRS, + Normal MO and + Normal QT-c ECG ST segments: + Normal ST segments [facility] Narrative 1544: The patient was evaluated in room A6. A complete history and physical exam was performed Cardiac monitoring: An order was placed for continuous cardiac monitoring. The monitor shows a rate of 70 with sinus rhythm interpreted by me 1699: Patient medically cleared. Awaiting psychiatric evaluation and placement. 2028: Awaiting psychiatric evaluation and placement. Case signed out to Dr. Valentin. Impression & Plan Depression with suicidal ideation, Benzodiazepine overdose Discharge Plan Visit Data Chief Complaint: Overdose (Intentional) ED Provider: Ming Cherry Discharge Problem: Depression with suicidal ideation, Benzodiazepine overdose Patient Disposition: Still a Patient Forms Stand Alone Forms: [facility], Suicide Prevention Resources Prescriptions Prescriptions: No Action lorazepam 0.5 mg tablet 0.5 mg PO Q6 PRN (Reason: Anxiety) Qty: 30 0RF albuterol sulfate [Ventolin HFA] 90 mcg/actuation HFA aerosol inhaler See Rx Instructions .ROUTE .COMPLEX Qty: 18 5RF Dose Instruction: INHALE 2 PUFFS BY MOUTH EVERY FOUR HOURS NEEDED FOR ASTHMA Rx Instructions: INHALE 2 PUFFS BY MOUTH EVERY FOUR HOURS NEEDED FOR ASTHMA ketorolac 10 mg tablet 10 mg PO Q8H PRN (Reason: pain) 5 Days Qty: 15 0RF Emgality Pen 120 mg/mL pen injector See Rx Instructions .ROUTE .COMPLEX Qty: 1 11RF Dose Instruction: INJECT 120MG SUBCUTANEOUSLY MONTHLY Rx Instructions: INJECT 120MG SUBCUTANEOUSLY MONTHLY omeprazole 20 mg capsule,delayed release(DR/EC) 20 mg PO QAM 90 Days Qty: 90 3RF atorvastatin 20 mg tablet 20 mg PO HS 90 Days Qty: 90 2RF gabapentin 600 mg tablet 600 mg PO TID 90 Days Qty: 270 3RF (DME) Power Wheelchair Device See Rx Instructions .Route Qty: 1 0RF Rx Instructions: As directed amlodipine 5 mg tablet 5 mg PO DAILY Qty: 90 2RF duloxetine [Cymbalta] 60 mg capsule,delayed release(DR/EC) 60 mg PO QAM 90 Days Qty: 90 2RF budesonide-formoterol [Breyna] 80-4.5 mcg/actuation HFA aerosol inhaler 2 inh inhalation BID 90 Days Qty: 10.2 2RF sertraline 100 mg tablet 100 mg PO HS trazodone 50 mg tablet 50 mg PO HS prazosin [Minipress] 1 mg capsule 1 mg PO HS Referrals Referrals: Lily Nieto MD [Primary Care Provider] -
[2023-11-13 20:46] LABS: Appearance Urine Clear (Clear); Bilirubin Urine Negative (Negative); Blood Urine Negative (Negative); Color Urine Yellow; Glucose Urine UA Negative (Negative); Ketones Urine Negative (Negative); Leukocyte Esterase Urine Negative (Negative); Nitrite Urine Negative (Negative); Protein Urine Negative (Negative); Specific Gravity Urine 1.016 (1.000-1.030); Urobilinogen Urine Negative (Negative); pH Urine 5.5 (4.5-7.5)
[2023-11-13 21:27] LABS: Amphetamines+Metham, Urine Neg (Neg); Barbiturates, Urine Neg (Neg); Benzodiazepine, Urine Neg (Neg); Cocaine, Urine Neg (Neg); MDMA (Ecstacy), Urine Pos (Neg); Marijuana, Urine Neg (Neg); Methadone, Urine Neg (Neg); Opiate, Urine Neg (Neg); Phencyclidine, Urine Neg (Neg)
[2023-11-13] MEDS ORDERED: SODIUM CHLORIDE 0.65% NA SOLN 45 ML (OCEAN) PRN ×2 (22:52→22:53)
[2023-11-13] MEDS ORDERED: BISMUTH SUBSALICYLATE LIQD 236 ML PO PRN ×2 (22:52→22:53)
[2023-11-13] MEDS ORDERED: ALUMINUM/MAGNESIUM SUSP 30 ML UDC PO PRN ×2 (22:52→22:53)
[2023-11-13] MEDS ORDERED: MAGNESIUM HYDROXIDE SUSP 30 ML UDC PO PRN ×2 (22:52→22:53)
[2023-11-13] MEDS ORDERED: hydrOXYzine HCl 25 MG TAB PO PRN ×2 (22:53)
[2023-11-13] MEDS ORDERED: ACETAMINOPHEN 325 MG TAB PO PRN (22:53)
[2023-11-13] MEDS: GABAPENTIN 300 MG CAP PO ONE (23:33)
[2023-11-13] MEDS: FLUTICASONE/VILANTEROL 100/25MCG 14 PUFFS/INHALER INH SCH (23:33)
[2023-11-13] MEDS: SERTRALINE HCL 100 MG TABLET PO ONE (23:33)
[2023-11-14] MEDS ORDERED: KETOROLAC TROMETHAMINE 10 MG TABLET PO PRN (07:24)
[2023-11-14] MEDS: PANTOprazole 40 MG TAB PO SCH (10:06)
[2023-11-14] MEDS: amLODIPine BESYLATE 5 MG TAB PO SCH (10:07)
[2023-11-14] MEDS: DULoxetine HCL 60 MG CAP PO SCH (10:08)
[2023-11-14] MEDS: GABAPENTIN 600 MG TAB PO SCH (10:09)
[2023-11-14] MEDS ORDERED: IBUPROFEN 200 MG TAB PO PRN (15:02)
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
[2023-11-14] MEDS: SERTRALINE HCL 100 MG TABLET PO SCH (21:28)
[2023-11-14] MEDS: ATORVASTATIN 20 MG TAB PO SCH (21:29)
[2023-11-14] MEDS: PRAZOSIN HCL 1 MG CAP PO SCH (21:29)
[2023-11-14] MEDS: traZODone HCL 50 MG TAB PO SCH (21:30)
--- NOTE | 2023-11-15 16:46 | Psychiatric Progress Note ---
Date of Service November 15, 2023 Impression / Recommendations Impression 53 yo female with hx of depression, anxiety (reportedly with PTSD), admit s/p benzodiazpine OD (estimated at least 7 mg), some residual fatigue but also several chronic pain conditions (neuropathy, fibromyalgia, migraine syndromes). Overall, I spent a total of 37 minutes with this case, including review of chart, direct evaluation of the patient, counseling the patient, coordination with nursing, interdisciplinary team meeting, and documentation. (1) Depression: (2) Benzodiazepine overdose: (3) Idiopathic polyneuropathy: (4) Anxiety: (5) Arthralgia of multiple sites: (6) Chronic back pain: (7) Migraine: Plan 11/15/23: patient agreeable to remain hospitalized pending family/support meeting for safety planning around medications. Hold parameters on norvasc (for reynauds per patient) and prazosin. 11/14/23: The patient was admitted to the [facility] ([facility] mental health unit) on q15 min checks (behavioral with suicide precautions) for safety. The patient will participate in group, recreational, and milieu therapies and will be offered additional individual and family sessions as clinically appropriate. Risks/benefits/alternatives reviewed re: Zoloft and Cymbalta in combination and dosing ranges for each, to consider titration but still processing aftereffects of OD. patient signed a 72 hr notice after meeting with me. She is willing to stay for additional monitoring and treatment, just believed that she was signing in for 72 hrs. Inventory Assets Strengths: established outpatient providers, voluntary for treatment Needs: improve coping and insight into condition Suicide Risk Level Suicide Risk Level: Moderate (q15 min suicide checks) Risk Factors Assessment : Yes Do You Have Access To A Gun?: No Health Problems: Yes Mental Health Diagnoses: Yes Substance Use Disorders: No Previous Attempt: No Previous Psychiatric Hospitalization: No Protective Factors Assessment Employed: No Stable Relationships: Yes Supportive Family: No Interval History Identifying Information ZAINAB MURRELL is a 53-year-old F who currently lives in [place], has a history of chronic pain/mobility issues, and was admitted on 11/13/23 22:49 on a 201 voluntary commitment s/p intention OD. Chief Complaint "I feel less slowed down today." Review of Systems Sleep Information Total Hours of Sleep: 7.75 Meal Information Percent Meal Consumed - Breakfast: 100 Percent Meal Consumed - Lunch: 100 Percent Meal Consumed - Dinner: 50 Subjective Subjective Patient was seen & assessed and interval progress reviewed with treatment team. Patient remains focussed on her dog. Has some hypotension but denies she is symptomatic. Gait steady with walker. She does not attend groups. She maintains that her ingestion was not a suicide attempt, but a "shut off" and is asking to return home tomorrow as her fiance (who has seizure disorder) had two seizures last week and she worries about him. Physical Exam Psychiatric Orientation: alert and oriented x 3 Apperance: appropriately dressed and appropriately groomed Eye Contact: good eye contact Motor Behavior: no abnormal motor movements Speech: normal rate/rhythm/volume of speech Affect: + depressed affect Mood: + depressed mood Thought Process: goal directed thought process Thought Content: reality based without delusions Suicidal Thoughts: denies suicidal thoughts Homicidal Thoughts: denies homicidal thoughts Hallucinations: no auditory hallucinations and no visual hallucinations Cognition: attention grossly intact and language grossly intact Estimated Intelligence: consistent with education level Insight: + limited insight Judgment: + limited judgement Vital Signs (Past 24 Hours) Last Vital Signs Temp 35.9 C L 11/15/23 06:00 Pulse 65 11/15/23 12:38 Resp 16 11/15/23 06:00 BP 95/53 L 11/15/23 12:38 Pulse Ox 97 11/15/23 12:38 O2 Del Method Room Air 11/15/23 12:38 Results & Data ([facility]) Current Inpatient Medications Current Inpatient Medications: Current Inpatient Medications Acetaminophen (Acetaminophen 325 Mg Tab) 650 mg PO Q4H PRN PRN Reason: Headache or Minor Fever Stop: 12/13/23 22:51 Al Hydrox/Mg Hydrox/Simethicone (Aluminum/Magnesium Susp 30 Ml Udc) 30 ml PO Q4H PRN PRN Reason: GI Upset Stop: 12/13/23 22:51 Amlodipine Besylate (Amlodipine Besylate 5 Mg Tab) 5 mg PO DAILY [place] Stop: 12/14/23 08:59 Last Admin: 11/14/23 10:07 Dose: 5 mg Atorvastatin Calcium (Atorvastatin 20 Mg Tab) 20 mg PO HS [place] Stop: 12/14/23 21:59 Last Admin: 11/14/23 21:29 Dose: 20 mg Bismuth Subsalicylate (Bismuth Subsalicylate Liqd 236 Ml) 15 ml PO PRN PRN PRN Reason: Loose Stool Stop: 12/13/23 22:51 Duloxetine HCl (Duloxetine Hcl 60 Mg Cap) 60 mg PO QAM [facility] Stop: 12/14/23 08:59 Last Admin: 11/15/23 08:57 Dose: 60 mg Fluticasone/Vilanterol (Fluticasone/Vilanterol 100/25mcg 14 Puffs/Inhaler) 1 puffs INH HS [facility] Stop: 12/13/23 22:59 Last Admin: 11/14/23 21:29 Dose: 1 puffs Gabapentin (Gabapentin 600 Mg Tab) 600 mg PO TID [place] Stop: 12/14/23 08:59 Last Admin: 11/15/23 14:16 Dose: 600 mg Hydroxyzine HCl (Hydroxyzine Hcl 25 Mg Tab) 50 mg PO HSZ PRN PRN Reason: Insomnia Stop: 12/13/23 22:51 Hydroxyzine HCl (Hydroxyzine Hcl 25 Mg Tab) 25 mg PO Q4H PRN PRN Reason: Anxiety Stop: 12/13/23 22:51 Ibuprofen (Ibuprofen 200 Mg Tab) 200 mg PO Q6 PRN PRN Reason: Pain or Fever Stop: 12/14/23 15:01 Magnesium Hydroxide (Magnesium Hydroxide Susp 30 Ml Udc) 30 ml PO DAILY PRN PRN Reason: Constipation Stop: 12/13/23 22:51 Pantoprazole Sodium (Pantoprazole 40 Mg Tab) [facility] Stop: 12/14/23 08:59 Last Admin: 11/15/23 08:57 Dose: 40 mg Prazosin HCl (Prazosin Hcl 1 Mg Cap) 1 mg PO [facility] Stop: 12/14/23 21:59 Last Admin: 11/14/23 21:29 Dose: 1 mg Sertraline HCl (Sertraline Hcl 100 Mg Tablet) 100 mg PO [facility] Stop: 12/14/23 21:59 Last Admin: 11/14/23 21:28 Dose: 100 mg Sodium Chloride (Sodium Chloride 0.65% Na Soln 45 Ml ([place])) 1 - 2 sprays NA PRN PRN PRN Reason: Nasal Dryness/Congestion Stop: 12/13/23 22:51 Trazodone HCl (Trazodone Hcl 50 Mg Tab) 50 mg PO HS [place] Stop: 12/14/23 21:59 Last Admin: 11/14/23 21:30 Dose: 50 mg Mental Health & Subst Abuse Tx Psychiatrist Name of Psychiatrist: Des Cavazos (first available) Psychiatrist's Date Of Appointment With Psychiatric Provider: 12/25/23 Time of Appointment with Psychiatrist: 2:05 PM Psychiatric Appointment Comment: [address] [place] [address] [facility] [place] [id number] Therapist Name of Therapist: Des Barnett Therapist's Date of Therapist Appointment: 11/21/23 Time of Therapist Appointment: 11:00 AM Therapy Appointment Comment: This appointment is via telehealth. Post Discharge Appointments Primary Care Physician Name Of Family Doctor/PCP: ALICIA Nieto [facility] Time of Appointment with PCP: Please follow-up with your PCP as needed Provider Appointment Comment: [address] [place] [address] [place] [address] Contact Information Discharge Discharge Address: [address] [place] [address] [place] [id number]
[2023-11-15] MEDS: ACETAMINOPHEN 325 MG TAB PO PRN (23:16)
[2023-11-16] MEDS: hydrOXYzine HCl 25 MG TAB PO PRN ×2 (02:35→22:58)
--- NOTE | 2023-11-16 15:20 | Psychiatric Progress Note ---
Date of Service November 16, 2023 Impression / Recommendations Impression 53 yo female with hx of depression, anxiety (reportedly with PTSD), admit s/p benzodiazpine OD (estimated at least 7 mg), some residual fatigue but also several chronic pain conditions (neuropathy, fibromyalgia, migraine syndromes). 11/16/23--symptomatic dysuria, asymptomatic hypotension Overall, I spent a total of 40 minutes with this case, including review of chart, direct evaluation of the patient, counseling the patient, coordination with nursing, and documentation. (1) Depression: (2) Benzodiazepine overdose: (3) Idiopathic polyneuropathy: (4) Anxiety: (5) Arthralgia of multiple sites: (6) Chronic back pain: (7) Migraine: Plan 11/16/23: Decrease Norvasc to 2.5 mg daily given fall risk if able to receive due to parameters. UA with micro, reflex C&S. d/c Vistaril 50 mg hs prn. increase frequency of VS and encourage fluids. Safety planning. Patient is rescinding 72 hr notice. Multiple bottles of Ativan to be destroyed at discharge rather than returned to patient. 11/15/23: patient agreeable to remain hospitalized pending family/support meeting for safety planning around medications. Hold parameters on norvasc (for reynauds per patient) and prazosin. 11/14/23: The patient was admitted to the [facility] ([facility] mental health unit) on q15 min checks (behavioral with suicide precautions) for safety. The patient will participate in group, recreational, and milieu therapies and will be offered additional individual and family sessions as clinically appropriate. Risks/benefits/alternatives reviewed re: Zoloft and Cymbalta in combination and dosing ranges for each, to consider titration but still processing aftereffects of OD. patient signed a 72 hr notice after meeting with me. She is willing to stay for additional monitoring and treatment, just believed that she was signing in for 72 hrs. Inventory Assets Strengths: established outpatient providers, voluntary for treatment Needs: improve coping and insight into condition Suicide Risk Level Suicide Risk Level: Moderate (q15 min suicide checks) Risk Factors Assessment : Yes Do You Have Access To A Gun?: No Health Problems: Yes Mental Health Diagnoses: Yes Substance Use Disorders: No Previous Attempt: No Previous Psychiatric Hospitalization: No Protective Factors Assessment Employed: No Stable Relationships: Yes Supportive Family: No Interval History Identifying Information ZAINAB MURRELL is a 53-year-old F who currently lives in [place], has a history of chronic pain/mobility issues, and was admitted on 11/13/23 22:49 on a 201 voluntary commitment s/p intention OD. Chief Complaint dysuria, hypotension Review of Systems Sleep Information Total Hours of Sleep: 6.25 Meal Information Percent Meal Consumed - Breakfast: 100 Percent Meal Consumed - Lunch: 0 Percent Meal Consumed - Dinner: 100 Subjective Subjective Patient was seen & assessed and interval progress reviewed with nursing and social work. Patient had some difficulty falling asleep last pm. Attributes her low bp today (asymptomatic) to Vistaril prn (on top of trazodone). She did receive prazosin last night but her am Norvasc was held again, she did notice a difference in her toe pain yesterday in colder areas of unit. She also reported burning with urination. Reviewed need for family/support person meeting for safety planning around meds. Staff made me aware that her belongings include 5-[address] bottles [address] Dr[address] Cavazos, some of them totally full of 90 pills. Reviewed with patient that unit policy is to destroy them and will not be returned for safety reasons given misuse and she was "totally fine" with that. The patient agrees to rescind her 72 hr notice to remain hospitalized until family meeting/sister able to provide transportation home. Physical Exam Psychiatric Orientation: alert and oriented x 3 Apperance: appropriately dressed and appropriately groomed Eye Contact: good eye contact Motor Behavior: no abnormal motor movements Speech: normal rate/rhythm/volume of speech Affect: + depressed affect Mood: + depressed mood Thought Process: goal directed thought process Thought Content: reality based without delusions Suicidal Thoughts: denies suicidal thoughts Homicidal Thoughts: denies homicidal thoughts Hallucinations: no auditory hallucinations and no visual hallucinations Cognition: attention grossly intact and language grossly intact Estimated Intelligence: consistent with education level Insight: + limited insight Judgment: + limited judgement Vital Signs (Past 24 Hours) Last Vital Signs Temp 35.5 C L 11/16/23 06:00 Pulse 118 H 11/16/23 06:39 Resp 16 11/16/23 06:00 BP 89/46 L 11/16/23 06:39 Pulse Ox 97 11/15/23 12:38 O2 Del Method Room Air 11/15/23 12:38 Results & Data ([facility]) Laboratory Results Laboratory Results - last 24 hr 11/16/23 15:00 Urine Color Pending Urine Appearance Pending Urine pH Pending Ur Specific [place] Pending Urine Protein Pending Urine Glucose (UA) Pending Urine Ketones Pending Urine Blood Pending Urine Nitrite Pending Urine Bilirubin Pending Urine Urobilinogen Pending Ur Leukocyte Esterase Pending Current Inpatient Medications Current Inpatient Medications: Current Inpatient Medications Acetaminophen (Acetaminophen 325 Mg Tab) 650 mg PO Q4H PRN PRN Reason: Headache or Minor Fever Stop: 12/13/23 22:51 Last Admin: 11/16/23 14:59 Dose: 650 mg Al Hydrox/Mg Hydrox/Simethicone (Aluminum/Magnesium Susp 30 Ml Udc) 30 ml PO Q4H PRN PRN Reason: GI Upset Stop: 12/13/23 22:51 Amlodipine Besylate (Amlodipine Besylate 5 Mg Tab) 2.5 mg PO DAILY ELTON Stop: 12/17/23 08:59 Atorvastatin Calcium (Atorvastatin 20 Mg Tab) 20 mg PO HS ELTON Stop: 12/14/23 21:59 Last Admin: 11/15/23 23:16 Dose: 20 mg Bismuth Subsalicylate (Bismuth Subsalicylate Liqd 236 Ml) 15 ml PO PRN PRN PRN Reason: Loose Stool Stop: 12/13/23 22:51 Duloxetine HCl (Duloxetine Hcl 60 Mg Cap) 60 mg PO QAM ELTON Stop: 12/14/23 08:59 Last Admin: 11/16/23 08:52 Dose: 60 mg Fluticasone/Vilanterol (Fluticasone/Vilanterol 100/25mcg 14 Puffs/Inhaler) 1 puffs INH HS ELTON Stop: 12/13/23 22:59 Last Admin: 11/15/23 23:16 Dose: 1 puffs Gabapentin (Gabapentin 600 Mg Tab) 600 mg PO TID ELTON Stop: 12/14/23 08:59 Last Admin: 11/16/23 14:16 Dose: 600 mg Hydroxyzine HCl (Hydroxyzine Hcl 25 Mg Tab) 25 mg PO Q4H PRN PRN Reason: Anxiety Stop: 12/13/23 22:51 Ibuprofen (Ibuprofen 200 Mg Tab) 200 mg PO Q6 PRN PRN Reason: Pain or Fever Stop: 12/14/23 15:01 Magnesium Hydroxide (Magnesium Hydroxide Susp 30 Ml Udc) 30 ml PO DAILY PRN PRN Reason: Constipation Stop: 12/13/23 22:51 Pantoprazole Sodium (Pantoprazole 40 Mg Tab) 40 mg PO QAM ELTON Stop: 12/14/23 08:59 Last Admin: 11/16/23 08:53 Dose: 40 mg Prazosin HCl (Prazosin Hcl 1 Mg Cap) 1 mg PO HS ELTON Stop: 12/14/23 21:59 Last Admin: 11/15/23 23:15 Dose: 1 mg Sertraline HCl (Sertraline Hcl 100 Mg Tablet) 100 mg PO HS ELTON Stop: 12/14/23 21:59 Last Admin: 11/15/23 23:15 Dose: 100 mg Sodium Chloride (Sodium Chloride 0.65% Na Soln 45 Ml ([place]re[place])) 1 - 2 sprays NA PRN PRN PRN Reason: Nasal Dryness/Congestion Stop: 12/13/23 22:51 Trazodone HCl (Trazodone Hcl 50 Mg Tab) 50 mg PO HS ELTON Stop: 12/14/23 21:59 Last Admin: 11/15/23 23:15 Dose: 50 mg Mental Health & Subst Abuse Tx Psychiatrist Name of Psychiatrist: Des Cavazos (first available) Psychiatrist's Date Of Appointment With Psychiatric Provider: 12/25/23 Time of Appointment with Psychiatrist: 2:05 PM Psychiatric Appointment Comment: [address] [place] [id number] Therapist Name of Therapist: Des Barnett Therapist's Date of Therapist Appointment: 11/21/23 Time of Therapist Appointment: 11:00 AM Therapy Appointment Comment: This appointment is via telehealth. Post Discharge Appointments Primary Care Physician Name Of Family Doctor/PCP: ALICIA Nieto Primary Care Time of Appointment with PCP: Please follow-up with your PCP as needed Provider Appointment Comment: [address] [place], [place] [address] [address] Contact Information Discharge Discharge Address: [address] [place] [id number]
[2023-11-16 15:28] LABS: Appearance Urine Clear (Clear); Bilirubin Urine Negative (Negative); Blood Urine Negative (Negative); Color Urine Yellow; Glucose Urine UA Negative (Negative); Ketones Urine Trace (Negative); Leukocyte Esterase Urine Negative (Negative); Nitrite Urine Negative (Negative); Protein Urine Negative (Negative); Specific Gravity Urine 1.023 (1.000-1.030); Urobilinogen Urine Negative (Negative); pH Urine 5.5 (4.5-7.5)
[2023-11-17] MEDS: amLODIPine BESYLATE 5 MG TAB PO SCH (08:35)
[2023-11-17] MEDS ORDERED: DESTROY THIS MEDICATION ONE (08:58)
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
[2023-11-17 14:07] LABS: MDA negative; MDEA negative; MDMA (Ecstasy) Urine, Confirm negative
== END 2023-11-17 15:18 | disposition home or self-care (01) | DRG 881 ==
LOC: ED 15:38 → 3S 22:49